=== PATIENT | male | born 1955 | race Hispanic/Latino ===

== ENCOUNTER 2022-02-15 09:44 | Inpatient (IN) | payer BC, OTHER, SELFPAY ==
--- OUTSIDE RECORDS SUMMARY | 2022-02-15 09:46 | XMS REPORT | Continuity of Care Document ---
:1955 Author Organization [facility] t Address [address] [place] [address] Care Team Providers Name Role Phone System, Pcp Not In Primary Care Physician Unavailable Gloria Villalba Attending Clinician Unavailable Luciano Allen Attending Clinician Unavailable Rosita Sullivan Attending Clinician Unavailable Msaoud ALDRICH, Jo Al Attending Clinician Unavailable DIVINE RANDOLPH Attending Clinician Unavailable Only, Ang Db Test Attending Clinician Unavailable Divine Randolph MD Attending Clinician Payers Payer Name Policy Type Policy Number Effective Date Expiration Date S [facility] [employer] 6 [id number] 2018 Common Spiri t Blue Shield 00:00:00 - [facility] Problems Condition Condition Condition Status Onset Resolution Last Treating Co mments Source Name Details Category Date Date Treatment Clinician Date [id number] White coat Problem Com mon syndrome Spirit with - [facility] diagnosis [facility] [id number] Controlled Problem Co mmon type 2 Spirit diabetes - [facility] mellitus [facility] without long-term current use of insulin [id number] Dietary Problem Commo n surveillan Spirit ce and - [facility] counseling [facility] [id number] Hyperlipid Problem Com mon emia, Spirit unspecifie - CHI d St hyperlipid [facility] [id number] Overweight Problem Co [facility] (BMI Spirit 25.0-29.9) [facility] [id number] Open wound Problem Co [facility] Allergies, Adverse Reactions, Alerts Allergy Allergy Status Severity Reaction(s) Onset Inactive Treating Comm ents Source Name Type Date Date Clinician NO KNOWN Drug Active Univers ALLERGIE Class ity [facility] Social History Social Habit Start Date Stop Date Quantity Comments Source History of Tobacco Use Co [facility] Sex Assigned At Com mon [facility] Exposure to SARS-CoV-2 Yes Un [facility] Smoking Status Start Date Stop Date Source Unknown if ever smoked General acute hospital Former Smoker 2021-11-12 00:00:00 2021-11-12 00:00:00 Common S [facility] nter Medications Ordered Filled Start Stop Current Ordering Indication Dosage Frequency Signature Comments Components Source Medication Medication Date Date Medication? Clinician (SIG) Name Name Metformin Metformin Yes Rosita 1 tablet Common HCl HCl 7-02 Millender with a Spirit 00:00: meal - [facility] 00 [facility] metFORMIN metFORMIN No 1{table BID metFORMIN HCl 500 MG HCl 500 MG t_with_ HCl 500 MG a_meal} Aspir-Low Aspir-Low No 1{table QD Aspir-Low 81 MG 81 MG t} 81 MG amLODIPine amLODIPine No 1{table QD amLODIPine Besylate 10 Besylate 10 t} Besylate MG MG 10 MG glipiZIDE glipiZIDE No 1{table BID glipiZIDE 10 MG 10 MG t} 10 MG Metoprolol Metoprolol No 1{table BID Metoprolol Tartrate 50 Tartrate 50 t_with_ Tartrate MG MG food} 50 MG Lisinopril Lisinopril No 1{table BID Lisinopril 20 mg 20 mg t} 20 mg metFORMIN metFORMIN No 1{table BID metFORMIN HCl 500 MG HCl 500 MG t_with_ HCl 500 MG a_meal} Metoprolol Metoprolol No Metoprolol Tartrate 50 Tartrate 50 Tartrate MG MG 50 MG metFORMIN metFORMIN No metFORMIN HCl 500 MG HCl 500 MG HCl 500 MG Lisinopril Lisinopril No 1{table BID Lisinopril 20 mg 20 mg t} 20 mg glipiZIDE glipiZIDE No glipiZIDE 10 MG 10 MG 10 MG glipiZIDE glipiZIDE No 1{table BID glipiZIDE 10 MG 10 MG t} 10 MG Lisinopril Lisinopril No Lisinopril 20 MG 20 MG 20 MG Metoprolol Metoprolol No 1{table BID Metoprolol Tartrate 50 Tartrate 50 t_with_ Tartrate MG MG food} 50 MG amLODIPine amLODIPine No 1{table QD amLODIPine Besylate 10 Besylate 10 t} Besylate MG MG 10 MG Aspir-Low Aspir-Low No 1{table QD Aspir-Low 81 MG 81 MG t} 81 MG amLODIPine amLODIPine No amLODIPine Besylate 10 Besylate 10 Besylate MG MG 10 MG Metoprolol Metoprolol No Metoprolol Tartrate 50 Tartrate 50 Tartrate MG MG 50 MG amLODIPine amLODIPine No 1{table QD amLODIPine Besylate 10 Besylate 10 t} Besylate MG MG 10 MG metFORMIN metFORMIN No 1{table BID metFORMIN HCl 500 MG HCl 500 MG t_with_ HCl 500 MG a_meal} Metoprolol Metoprolol No 1{table BID Metoprolol Tartrate 50 Tartrate 50 t_with_ Tartrate MG MG food} 50 MG amLODIPine amLODIPine No amLODIPine Besylate 10 Besylate 10 Besylate MG MG 10 MG Aspir-Low Aspir-Low No 1{table QD Aspir-Low 81 MG 81 MG t} 81 MG glipiZIDE glipiZIDE No glipiZIDE 10 MG 10 MG 10 MG Lisinopril Lisinopril No 1{table BID Lisinopril 20 mg 20 mg t} 20 mg Lisinopril Lisinopril No Lisinopril 20 MG 20 MG 20 MG glipiZIDE glipiZIDE No 1{table BID glipiZIDE 10 MG 10 MG t} 10 MG metFORMIN metFORMIN No metFORMIN HCl 500 MG HCl 500 MG HCl 500 MG amLODIPine amLODIPine No 1{table QD amLODIPine Besylate 10 Besylate 10 t} Besylate MG MG 10 MG Lisinopril Lisinopril No Lisinopril 20 MG 20 MG 20 MG Aspir-Low Aspir-Low No 1{table QD Aspir-Low 81 MG 81 MG t} 81 MG Metoprolol Metoprolol No Metoprolol Tartrate 50 Tartrate 50 Tartrate MG MG 50 MG metFORMIN metFORMIN No 1{table BID metFORMIN HCl 500 MG HCl 500 MG t_with_ HCl 500 MG a_meal} metFORMIN metFORMIN No metFORMIN HCl 500 MG HCl 500 MG HCl 500 MG Lisinopril Lisinopril Yes Rosita 1 tablet Common Millender [facility] Aspir-Low Aspir-Low Yes Rosita 1 tablet Common Millender [facility] GlipiZIDE GlipiZIDE Yes Rosita 1 tablet Common Millender [facility] Amlodipine Amlodipine Yes Rosita 1 tablet Common Besylate Besylate [facility] Met[facility] Met[facility]rolol Yes Rosita 1 tablet Common Tartrate Tartrate Millender with food [facility] glipiZIDE glipiZIDE No 1{table BID glipiZIDE 10 MG 10 MG t} 10 MG amLODIPine amLODIPine No amLODIPine Besylate 10 Besylate 10 Besylate MG MG 10 MG Lisinopril Lisinopril No 1{table BID Lisinopril 20 mg 20 mg t} 20 mg Metoprolol Metoprolol No 1{table BID Metoprolol Tartrate 50 Tartrate 50 t_with_ Tartrate MG MG food} 50 MG glipiZIDE glipiZIDE No glipiZIDE 10 MG 10 MG 10 MG metFORMIN metFORMIN No 1{table BID metFORMIN HCl 500 MG HCl 500 MG t_with_ HCl 500 MG a_meal} amLODIPine amLODIPine No 1{table QD amLODIPine Besylate 10 Besylate 10 t} Besylate MG MG 10 MG Metoprolol Metoprolol No 1{table BID Metoprolol Tartrate 50 Tartrate 50 t_with_ Tartrate MG MG food} 50 MG Aspir-Low Aspir-Low No 1{table QD Aspir-Low 81 MG 81 MG t} 81 MG glipiZIDE glipiZIDE No 1{table BID glipiZIDE 10 MG 10 MG t} 10 MG Lisinopril Lisinopril No 1{table BID Lisinopril 20 mg 20 mg t} 20 mg metFORMIN metFORMIN No 1{table BID metFORMIN HCl 500 MG HCl 500 MG t_with_ HCl 500 MG a_meal} amLODIPine amLODIPine No 1{table QD amLODIPine Besylate 10 Besylate 10 t} Besylate MG MG 10 MG Metoprolol Metoprolol No 1{table BID Metoprolol Tartrate 50 Tartrate 50 t_with_ Tartrate MG MG food} 50 MG Aspir-Low Aspir-Low No 1{table QD Aspir-Low 81 MG 81 MG t} 81 MG glipiZIDE glipiZIDE No 1{table BID glipiZIDE 10 MG 10 MG t} 10 MG Lisinopril Lisinopril No 1{table BID Lisinopril 20 mg 20 mg t} 20 mg Vital Signs Vital Name Observation Time Observation Value Comments Source height 2021-11-18 09:20:00 74.00 [in_i] Common S pirit - [facility] enter weight 2021-11-18 09:20:00 214 [lb_av] Common S pirit - [facility] enter bmi 2021-11-18 09:20:00 27.47 kg/m2 Common S pirit - [facility] enter height 2021-03-11 09:20:00 74.00 [in_i] Common S [facility]irit - [facility] enter weight 2021-03-11 09:20:00 208.9 [lb_av] Common Spirit - [facility] enter bmi 2021-03-11 09:20:00 26.82 kg/m2 Common S pirit - [facility] enter Procedures This patient has no known procedures. Encounters Start End Encounter Admission Attending Care Care Encounter Source Date/Time Date/Time Type Type Clinicians Facility Department ID 2021-11-16 [facility] [id number] Common 14:11:01 [facility] 2021-07-15 Out[facility] [id number] Common 09:29:00 [facility] 2021-04-13 Outpatient [facility]al[facility], [facility] [id number] Common 13:28:00 [facility] 2021-03-11 Out[facility] [id number] Common 14:39:02 [facility] 2021-03-11 Outpatient Villalba[facility] [id number] Common 14:12:56 [id number] [facility] 2021-03-11 Outpatient Villalba, Na [facility] [id number] Common 12:50:14 40412 [facility] 2021-03-11 Outpatient Villalba, Na [facility] [id number] Common 12:41:34 [id number] [facility] 2021-03-11 Outpatient Villalba, Na [facility] [id number] Common 12:21:41 [id number] [facility] 2021-03-11 Outpatient [facility] [id number] Common 12:18:05 [id number] [facility] 2021-03-11 Outpatient Alejandro Kin [facility] [id number] Common 12:08:27 [id number] [facility] 2021-03-11 Outpatient Millender, [facility] [id number] Common 11:36:59 Rosita 35953 [facility] 2021-03-11 Outpatient Millender, STL[facility]C [facility] [id number] Common 11:36:29 Rosita 11796 [facility] 2021-11-18 2021-11-18 OL DIG E/M [facility] [id number] Common 00:00:00 00:00:00 [facility] 01-03 Spir it MIN [facility] 2021-07-15 2021-07-15 OL DIG E/M [facility] [id number] Common 00:00:00 00:00:00 [facility] 01-03 Spir it MIN [facility] 2021-03-11 2021-03-11 OL DIG E/M [facility]C [facility] [id number] Common 00:00:00 00:00:00 [facility] 01-03 Spir it MIN [facility] 2021-02-19 2021-02-19 (TEL) STLMLC [facility] [id number] Co mmon 00:00:00 00:00:00 [facility] 2021-01-06 2021-01-06 (TEL) STLMLC [facility] [id number] Co mmon 00:00:00 00:00:00 [facility] 2021-01-04 2021-01-04 (TEL) STLMLC ST[facility] [id number] Co mmon 00:00:00 00:00:00 [facility] 2020-10-21 2020-10-21 Letter MasoudMIR garcia [id number] Univers 00:00:00 00:00:00 (Out) Jo Al TASH [id number] it [facility] [id number] Dustin as [id number] [address] 2020-10-19 2020-10-19 Outpatient R GONZALEZ [facility] [id number] Univers 17:00:00 [facility]:00[facility]00 [facility] 2020-10-19 2020-10-19 Laboratory Only, Ang Db Test [facility] [id number] Univers 16:28:44 16:43:44 [id number] [id number] Dustin as Christian?Blea [id number] [address] Medical Office Building 2020-06-19 2020-06-19 Outpatient [facility]C [facility] [id number] Common 00:00:00 00:00:00 [facility] 2020-05-01 2020-05-01 Outpatient STLMLC STL[facility] [id number] Common 00:00:00 00:00:00 [facility] 2020-03-05 2020-03-05 Outpatient STLMLC STL[facility]C [id number] Common 00:00:00 00:00:00 [facility] 2020-02-29 2020-02-29 Outpatient STLMLC ST[facility] [id number] Common 00:00:00 00:00:00 [facility] 2019-09-26 2019-09-26 [facility] [id number] Common 11:00:00 11:00:[address] [facility] - [facility] 2019-08-21 2019-08-21 [facility] [id number] Common 13:51:00 13:51:[address] [facility] 2019-08-20 2019-08-20 [facility] [id number] Common 10:17:00 10:17:[address] [facility] 2019-08-20 2019-08-20 [facility] [id number] Common 10:00:00 10:00:[address] [facility] 2018-10-04 2018-10-04 [facility] [id number] Common 10:15:00 10:15:00 t Urgent Urgent Care S [facility] Care [facility] 2018-01-25 2018-01-25 [facility] [id number] Common 11:15:00 11:15:[address] [facility] 2017-08-24 2017-08-24 [facility] [id number] Common 13:30:00 13:30:[address] [facility] Results This patient has no known results.
--- NOTE | 2022-02-15 10:48 | RAD REPORT ---
EXAM DESCRIPTION: RAD - Chest Single View - 02/15/2022 10:30 am CLINICAL HISTORY: MALAISE, weakness, chest pain COMPARISON: June 2014 TECHNIQUE: AP portable chest image was obtained 02/15/2022 10:30 am . FINDINGS: Lungs are clear. Heart and vasculature are normal. No measurable pleural effusion and no p neumothorax. No acute bony abnormality seen. No acute aortic findings suspected. IMPRESSION: No acute cardiopulmonary process.
--- NOTE | 2022-02-15 10:50 | RAD REPORT ---
EXAM DESCRIPTION: CT - Head Brain Wo Cont - 02/15/2022 10:24 am CLINICAL HISTORY: fall, gen weakness COMPARISON: Chest Single View dated 02/15/2022 TECHNIQUE: Axial 5 mm thick images of the head were obtained without IV contrast. All CT scans are performed using dose optimization technique as appropriate and may include automated exposure control or mA/KV adjustment according to patient size. FINDINGS: No intracranial hemorrhage, mass, edema or shift of mid-line structures. No acute cortical based infarction identified. No cortical edema or sulcal effacement. No significant atrophy changes are present. No abnormal extra-axial fluid collections. Ventricles are normal. Focal decreased attenu ation is seen in the periventricular white matter right frontal lobe. This is probably chronic ischem ic change. No focal neurologic deficits were detailed. Mastoid air cells and visualized portions of the paranasal sinuses are clear of acute finding. No acute bony findings. IMPRESSION: No intracranial hemorrhage is present. No mass, edema or shift of midline structures. Right frontal lobe periventricular white matter decreased attenuation likely chronic ischemic change. Ongoing clinical concerns for acute CVA can be addressed with MR imaging.
[2022-02-15 11:02] LABS: Absolute Lymphocytes (CBC) 0.5 K/uL (0.7-4.9); Hematocrit 39.7 % (39.6-49.0); Lymphocytes % 5.3 % (15.3-44.8); MCV 95.5 fL (80-100); RBC Red Blood Cell Count 4.15 M/uL (4.33-5.43)
[2022-02-15 11:08] LABS: Protime INR 1.43
[2022-02-15 11:21] LABS: Albumin 3.6 g/dL (3.4-5.0); Bilirubin Total 1.4 mg/dL (0.2-1.0); Potassium 3.1 mmol/L (3.5-5.1); Protein, Total 7.9 g/dL (6.4-8.2)
[2022-02-15 11:36] LABS: Troponin High Sensitivity 61.8 pg/mL (<58.9)
[2022-02-15 12:03] LABS: Urine Blood 3+ (Negative); Urine Glucose 2+ (Negative); Urine Protein 3+ (Negative)
[2022-02-15 12:24] LABS: Transitional Epithelial <5 /HPF (None Seen); Urine Bacteria None Seen /HPF (<20); Urine Mucus Slight /HPF (None Seen); Urine RBC <5 /HPF (None Seen)
[2022-02-15 13:23] LABS: SARS-COV-2 RT PCR NEGATIVE (NEGATIVE)
[2022-02-15] MEDS ORDERED: NA CHLORIDE 0.9% 1,000 ML ONE ×2 (13:23→23:40)
[2022-02-15 13:44] LABS: Magnesium 2.2 mg/dL (1.6-2.4)
--- NOTE | 2022-02-15 14:04 | ER ---
Nurse's Notes [facility] Name: Kelby Paris Jr Age: 66 yrs Sex: Male : 1955 Arrival Date: 02/15/2022 Time: 10:10 Bed 18 Private MD: Diagnosis: Rhabdomyolysis;Hyponatremia;Hypokalemia;Muscle weakness (generalized) Presentation: 02/15 10:20 Chief complaint: EMS states: patient came from home, toned out for general weakness, kr3 fell last night and was unable to get up. Patient was found by family and assisted to his bed this morning and called EMS. Coronavirus screen: Vaccine status: Patient reports receiving the 2nd dose of the covid vaccine. Coronavirus screen: Client denies travel out of the [place] in the last 14 days. Ebola Screen: Patient denies travel to an Ebola-affected area in the 21 days before illness onset. Initial Sepsis Screen: Does the patient meet any 2 criteria? No. Patient's initial sepsis screen is negative. Does the patient have a suspected source of infection? No. Patient's initial sepsis screen is negative. Risk Assessment: Do you want to hurt yourself or someone else? Patient reports no desire to harm self or others. 10:20 Method Of Arrival: Stretcher kr3 10:20 Acuity: JULIA 3 kr3 02/16 04:36 Onset of symptoms was February 14, 2022. as6 Triage Assessment: 02/15 10:52 General: Appears in no apparent distress. comfortable, Behavior is calm, cooperative, kr3 appropriate for age. Pain: Denies pain. Historical: - Allergies: 10:27 No Known Allergies; kr3 - PMHx: 10:27 Diabetes mellitus; Hypertensive disorder; kr3 - Immunization history:: Adult Immunizations not up to date. - Social history:: Smoking status: Patient/guardian denies using tobacco, the patient reports quitting approximately 30 years ago. Screenin:26 [facility] ED Fall Risk Assessment (Adult) History of falling in the last 3 months, kr3 including since admission Yes- single mechanical fall (1 pt) Confusion or Disorientation No (0 pts) Intoxicated or Sedated No (0 pts) Impaired Gait No (0 pts) Mobility Assist Device Used No (0 pt) Altered Elimination No (0 pt) Score/Fall Risk Level 0 - 2 = Low Risk. Abuse screen: Denies threats or abuse. Nutritional screening: No deficits noted. Tuberculosis screening: No symptoms or risk factors identified. Assessment: 12:04 Reassessment: Patient appears in no apparent distress at this time. Patient and/or kr3 family updated on plan of care and expected duration. Pain level reassessed. Patient is alert, oriented x 3, equal unlabored respirations, skin warm/dry/pink. 13:01 Reassessment: Patient appears in no apparent distress at this time. Patient and/or kr3 family updated on plan of care and expected duration. Pain level reassessed. Patient is alert, oriented x 3, equal unlabored respirations, skin warm/dry/pink. 13:55 Reassessment: Patient appears in no apparent distress at this time. Patient and/or kr3 family updated on plan of care and expected duration. Pain level reassessed. Patient is alert, oriented x 3, equal unlabored respirations, skin warm/dry/pink. Vital Signs: 10:36 BP 152 / 78; Pulse 113; Resp 18; Temp 98.6; Pulse Ox 98% on R/A; kr3 12:04 BP 159 / 82; Pulse 111; Resp 18; Pulse Ox 99% on R/A; kr3 13:01 BP 166 / 92; Pulse 110; Resp 18; Pulse Ox 100% ; kr3 13:56 BP 150 / 80; Pulse 113; Resp 18; Pulse Ox 98% on R/A; kr3 19:15 BP 144 / 74; Pulse 115; Resp 18 S; Pulse Ox 97% on R/A; as6 NIH Stroke Scale Scores: 10:00 NIHSS Score: 0 [facility] ED Course: 10:10 Patient arrived in ED. mr 10:10 Daniela Kimbrough FNP [facility] j[facility] 10:10 Ally Montez MD is Attending Physician. 7 10:20 Rhonda Perez, VALDEMAR is Primary Nurse. kr3 10:20 Arm band placed on right wrist. Patient placed in an exam room, on a stretcher. kr3 10:26 CT Head Brain wo Cont In Process Unspecified. EDMS 10:26 Triage completed. kr3 10:32 XRAY Chest (1 view) In Process Unspecified. EDMS 10:57 Troponin High Sensitivity Sent. bc6 10:58 CBC with Diff Sent. bc6 10:58 CMP Sent. bc6 10:58 Lactate w/ 2H reflex if indic. Sent. bc6 10:58 Protime (+inr) Sent. bc6 10:58 Ptt, Activated Sent. bc6 10:58 Initial lab(s) drawn, by me, sent to lab. bc6 12:04 COVID-19/FLU A+B Sent. kr3 14:01 Montrell Mcrae is Hospitalizing Provider. 7 14:32 Inserted saline lock: 22 gauge in left antecubital area, using aseptic technique. Blood kr3 collected. 16:59 No provider procedures requiring assistance completed. Patient admitted, IV remains in kr3 place. 02/16 04:36 Placed in gown. Bed in low position. Call light in reach. Side rails up X2. as6 Administered Medications: 02/15 13:28 Drug: NS 0.9% 1000 ml Route: IV; Rate: 1 bolus; Site: right antecubital; kr3 02/16 04:37 Follow up: Response: No adverse reaction; IV Status: Completed infusion; IV Intake: as6 1000ml 02/15 16:41 Drug: Potassium Chloride 40 mEq Route: PO; kr3 02/16 04:37 Follow up: Response: No adverse reaction as6 02/15 16:41 Drug: vancoMYCIN 1 grams Route: IVPB; Infused Over: 2 hrs; Site: right antecubital; kr3 02/16 04:37 Follow up: Response: No adverse reaction; IV Status: Completed infusion; IV Intake: as6 250ml 02/15 22:46 Drug: Cefepime 1 grams Route: IVPB; Rate: 200 ml/hr; Infused Over: 30 mins; Site: right as6 antecubital; 02/16 04:38 Follow up: Response: No adverse reaction; IV Status: Completed infusion; IV Intake: as6 100ml 02/15 22:47 Not Given (not given by previous shiff): Zofran (Ondansetron) 4 mg IVP once; over 2 as6 minutes 22:48 Not Given (not given by previous shift ): ProTONIX (pantoprazole) 80 mg IVP once as6 Medication: 19:16 VIS not applicable for this client. as6 Intake: 02/16 04:37 IV: 1000ml; Total: 1000ml. as6 04:37 IV: 250ml; Total: 1250ml. as6 04:38 IV: 100ml; Total: 1350ml. as6 Outcome: 02/15 14:02 Decision to Hospitalize by Provider. [facility] 02/16 04:36 Admitted to ER Hold. Please see [facility] for further documentation. as6 Condition: stable Instructed on the need for admit. 08:40 Patient left the ED. ap3 NIH Stroke Scale - NIH Stroke Score Date: 02/15/2022 Time: 10:00 Total Score = 0 1a. Level of Consciousness (LOC) - 0(Alert) 1b. Level of Consciousness (LOC) (Month \T\ Age) - 0(Both) 1c. LOC Commands (Open \T\ Closes Eyes/Vacuum Tester Cans) - 0(Both) 2. Best Gaze (Lateral Gaze Paresis) - 0(Normal) 3. Visual Field Loss - 0(No visual loss) 4. Facial Palsy - 0(Normal) 5a. Left Arm: Motor (10-second hold) - 0(No drift) 5b. Right Arm: Motor (10-second hold) - 0(No drift) 6a. Left Leg: Motor (5-second hold - always test supine) - 0(No drift) 6b. Right Leg: Motor (5-second hold - always test supine) - 0(No drift) 7. Limb Ataxia (finger/nose \T\ heel/booth - test with eyes open) - 0(Absent) 8. Sensory Loss (pinprick arms/legs/face) - 0(Normal) 9. Best Language: Aphasia (description/naming/reading) - 0(No aphasia) 10. Dysarthria (speech clarity - read or repeat words) - 0(Normal) 11. Extinction and Inattention (visual/tactile/auditory/spatial/personal) - 0(No abnormality) Initials: [facility] Signatures: Dispatcher [employer] OCTAVIOCA Mayra Maria Eda Delong, RN RN herber3 Eric Lazo RN RN as6 Daniela Kimbrough, ACTIONSCRIPT DEVELOPER ACTIONSCRIPT DEVELOPER 7 Rhonda Perez RN RN kr3 India Zamudio
--- NOTE | 2022-02-15 14:04 | EDPHYS ---
Physician Documentation [facility] Name: Kelby Paris Jr Age: 66 yrs Sex: Male : 1955 Arrival Date: 02/15/2022 Time: 10:10 Bed 18 Private MD: OCTAVIO Physician Ally Montez HPI: 02/15 10:00 This 66 yrs old Male presents to ER via Stretcher with complaints of jh7 Generalized weakness. 10:00 The patient's problem is reported as weakness, that is generalized. Onset: The jh7 symptoms/episode began/occurred 2 day(s) ago. Duration: The episode is continuous. Associated signs and symptoms: Pertinent positives: Pertinent negatives: abdominal pain, chest pain, confusion, diarrhea, dizziness, headache, nausea, numbness, shortness of breath, vomiting. Patient reports generalized weakness since Tuesday. Reports that he slipped and fell in the restroom last night and was too weak to get up. Family members found patient on the floor after 12 hours this morning and were able to move him to his bed. PCP is Dr. Villalba. The patient is a history of hypertension and diabetes. EMS reports foul-smelling urine, blood glucose of 274, and tachycardic at 120.. Historical: - Allergies: 10:27 No Known Allergies; kr3 - PMHx: 10:27 Diabetes mellitus; Hypertensive disorder; kr3 - Immunization history:: Adult Immunizations not up to date. - Social history:: Smoking status: Patient/guardian denies using tobacco, the patient reports quitting approximately 30 years ago. ROS: 10:00 Constitutional: Negative for fever, chills, and weight loss, Eyes: Negative for injury, jh7 pain, redness, and discharge, ENT: Negative for injury, pain, and discharge, Neck: Negative for injury, pain, and swelling, Cardiovascular: Negative for chest pain, palpitations, and edema, Respiratory: Negative for shortness of breath, cough, wheezing, and pleuritic chest pain, Abdomen/GI: Negative for abdominal pain, nausea, vomiting, diarrhea, and constipation, Back: Negative for injury and pain, MS/Extremity: Negative for injury and deformity, Skin: Negative for injury, rash, and discoloration. 10:00 : Positive for foul smelling urine. 10:00 Neuro: Positive for weakness, Negative for altered mental status, dizziness, headache, loss of consciousness, syncope, tingling, visual changes. 10:00 All other systems are negative. Exam: 10:00 Head/Face: Normocephalic, atraumatic. Eyes: Pupils equal round and reactive to light, jh7 extra-ocular motions intact. Lids and lashes normal. Conjunctiva and sclera are non-icteric and not injected. Cornea within normal limits. Periorbital areas with no swelling, redness, or edema. Neck: Trachea midline, no thyromegaly or masses palpated, and no cervical lymphadenopathy. Supple, full range of motion without nuchal rigidity, or vertebral point tenderness. No Meningismus. Cardiovascular: Regular rate and rhythm with a normal S1 and S2. No gallops, murmurs, or rubs. Normal PMI, no JVD. No pulse deficits. Respiratory: Lungs have equal breath sounds bilaterally, clear to auscultation and percussion. No rales, rhonchi or wheezes noted. No increased work of breathing, no retractions or nasal flaring. Abdomen/GI: Soft, non-tender, with normal bowel sounds. No distension or tympany. No guarding or rebound. No evidence of tenderness throughout. Back: No spinal tenderness. No costovertebral tenderness. Full range of motion. Skin: Warm, dry with normal turgor. Normal color with no rashes, no lesions, and no evidence of cellulitis. MS/ Extremity: Pulses equal, no cyanosis. Neurovascular intact. Full, normal range of motion. 10:00 Constitutional: The patient appears alert, awake, tired appearing 10:00 : CVA tenderness, is absent, Foul-smelling urine noted upon exam. 10:00 Neuro: Orientation: to person, place, time \T\ situation. Mentation: is normal, Memory: is normal, Cranial nerves: grossly normal, Cerebellar function: is grossly normal, Motor: is normal, Sensation: is normal. Vital Signs: 10:36 BP 152 / 78; Pulse 113; Resp 18; Temp 98.6; Pulse Ox 98% on R/A; kr3 12:04 BP 159 / 82; Pulse 111; Resp 18; Pulse Ox 99% on R/A; kr3 13:01 BP 166 / 92; Pulse 110; Resp 18; Pulse Ox 100% ; kr3 13:56 BP 150 / 80; Pulse 113; Resp 18; Pulse Ox 98% on R/A; kr3 19:15 BP 144 / 74; Pulse 115; Resp 18 S; Pulse Ox 97% on R/A; as6 NIH Stroke Scale Scores: 10:00 NIHSS Score: 0 7 MDM: 10:10 Patient medically screened. [facility] 13:00 ED course: Patient reports that he has been unable to abduct his right arm beyond 90 jh7 degrees due to weakness. He denies any pain or injury to his arm, but states that since yesterday he has been having to use his left arm to raise his right arm above his head. Informed Erons, BREAK UP WORKER of this and agreed to order an MRI of the brain. The patient will be admitted for rhabdomyolysis, hypokalemia, and hyponatremia. The patient remained stable throughout the ER visit.. 14:00 Differential diagnosis: CVA, TIA, metabolic disorder, UTI, sepsis, pneumonia, [facility] electrolyte disturbance, rhabdomyolysis. Data reviewed: vital signs, nurses notes, lab test result(s), EKG, radiologic studies, CT scan, plain films. Data interpreted: Pulse oximetry: is 98 %. Interpretation: normal. Counseling: I had a detailed discussion with the patient and/or guardian regarding: the historical points, exam findings, and any diagnostic results supporting the discharge/admit diagnosis, the need for further work-up and treatment in the hospital. 02/15 10:12 Order name: CBC with Diff; Complete Time: 11:18 [facility] 02/15 10:12 Order name: CMP; Complete Time: 11:59 [facility] 02/15 10:12 Order name: Lactate w/ 2H reflex if indic.; Complete Time: 11:59 [facility] 02/15 10:12 Order name: Protime (+inr); Complete Time: 11:18 [facility] 02/15 10:12 Order name: Ptt, Activated; Complete Time: 11:18 [facility] 02/15 10:12 Order name: Urine Culture [facility] 02/15 10:12 Order name: Urine Microscopic Only; Complete Time: 12:26 [facility] 02/15 10:12 Order name: Troponin High Sensitivity; Complete Time: 11:59 [facility] 02/15 10:13 Order name: COVID-19/FLU A+B; Complete Time: 13:23 [facility] 02/15 11:54 Order name: Glucose, Ancillary Testing; Complete Time: 11:59 EDMS 02/15 12:03 Order name: Urine Dipstick-Ancillary; Complete Time: 12:26 EDMS 02/15 12:29 Order name: CK; Complete Time: 13:47 [facility] 02/15 12:29 Order name: Magnesium; Complete Time: 13:47 [facility] 02/15 12:29 Order name: Procalcitonin; Complete Time: 13:47 [facility] 02/15 13:54 Order name: Glucose, Ancillary Testing; Complete Time: 13:55 EDMS 02/15 13:56 Order name: Blood Culture Adult (2) [facility] 02/15 15:36 Order name: Troponin High Sensitivity EDMS 02/15 15:36 Order name: Troponin High Sensitivity; Complete Time: 22:56 EDMS 02/15 15:36 Order name: Troponin High Sensitivity; Complete Time: 06:57 EDMS 02/15 15:40 Order name: Creatine Phosphokinase; Complete Time: 22:56 EDMS 02/15 15:40 Order name: Lipid Profile; Complete Time: 06:57 EDMS 02/15 15:40 Order name: Magnesium; Complete Time: 22:56 EDMS 02/15 15:40 Order name: NT PRO-BNP; Complete Time: 22:56 EDMS 02/15 15:40 Order name: Phosphorus; Complete Time: 22:56 MS 02/15 15:40 Order name: Protime (+INR); Complete Time: 22:56 EDMS 02/15 15:40 Order name: T4 Free; Complete Time: 22:56 MS 02/15 15:40 Order name: Thyroid Stimulating Hormone; Complete Time: 22:56 MS 02/15 15:40 Order name: Urinalysis EDMS 02/15 15:40 Order name: Basic Metabolic Panel EDMS 02/15 15:40 Order name: Basic Metabolic Panel; Complete Time: 06:57 MS 02/15 10:12 Order name: EKG; Complete Time: 10:14 [facility] 02/15 10:12 Order name: CT Head Brain wo Cont; Complete Time: 10:54 [facility] 02/15 10:12 Order name: XRAY Chest (1 view); Complete Time: 10:54 [facility] 02/15 14:12 Order name: MRI - Brain Wo Cont 7 02/15 15:40 Order name: CBC with Automated Diff EDMS 02/15 15:40 Order name: CBC with Automated Diff; Complete Time: 06:57 EDMS 02/15 15:45 Order name: Osmolality, Serum; Complete Time: 22:56 EDMS 02/15 15:45 Order name: Osmolality, Urine EDMS 02/15 15:45 Order name: Sodium Level EDMS 02/15 15:45 Order name: UR POTASSIUM EDMS 02/15 15:45 Order name: UR SODIUM EDMS 02/15 15:47 Order name: Creatine Phosphokinase EDMS 02/15 15:47 Order name: Creatine Phosphokinase; Complete Time: 06:57 EDMS 02/15 15:48 Order name: Basic Metabolic Panel EDMS 02/15 15:48 Order name: Basic Metabolic Panel; Complete Time: 22:56 EDMS 02/15 16:02 Order name: Lactate Sepsis 2 HR Follow-up; Complete Time: 17:42 EDMS 02/15 17:45 Order name: CT Abd/Pelvis - IV Contrast Only [facility] 02/15 18:10 Order name: Type And Screen [facility] 02/15 18:53 Order name: MRI; Complete Time: 19:13 EDMS 02/15 20:07 Order name: CT; Complete Time: 22:56 EDMS 02/15 21:42 Order name: Type and Screen; Complete Time: 22:56 EDMS 02/15 23:38 Order name: Hemoglobin; Complete Time: 06:57 EDMS 02/15 23:38 Order name: Hematocrit; Complete Time: 06:57 EDMS 02/16 01:56 Order name: ABO/RH no charge; Complete Time: 06:57 EDMS 02/16 07:29 Order name: Liver (Hepatic) Function EDMS 02/16 07:44 Order name: Glucose, Ancillary Testing EDWI 02/15 10:12 Order name: Accucheck; Complete Time: 11:42 [facility] 02/15 10:12 Order name: Cardiac monitoring; Complete Time: 11:37 [facility] 02/15 10:12 Order name: EKG - Nurse/Tech; Complete Time: 11:37 [facility] 02/15 10:12 Order name: IV Saline Lock - Large Bore; Complete Time: 10:57 [facility] 02/15 10:12 Order name: Labs collected and sent; Complete Time: 10:57 [facility] 02/15 10:12 Order name: O2 Per Protocol; Complete Time: 11:26 [facility] 02/15 10:12 Order name: O2 Sat Monitoring; Complete Time: 11:26 [facility] 02/15 10:12 Order name: Urine Dipstick-Ancillary (obtain specimen); Complete Time: 12:04 [facility] 02/15 10:12 Order name: Vital Signs; Complete Time: 11:37 [facility] 02/15 13:24 Order name: Blood Glucose Level; Complete Time: 13:44 [facility] 02/15 15:40 Order name: 60g Consistent Carbohydrate (ADA 1800/2000) EDMS 02/15 15:49 Order name: Physical Therapy Consult EDMS EC:30 Rate is 107 beats/min. Rhythm is regular. QRS [place] is Normal. CT interval is normal at [facility] 152 msec. QRS interval is normal at 84 msec. QT interval is normal at 366 msec. No Q waves. T waves are Normal. Clinical impression: Sinus tachycardia. Administered Medications: 13:28 Drug: NS 0.9% 1000 ml Route: IV; Rate: 1 bolus; Site: right antecubital; 3 02/16 04:37 Follow up: Response: No adverse reaction; IV Status: Completed infusion; IV Intake: as6 1000ml 02/15 16:41 Drug: Potassium Chloride 40 mEq Route: PO; 3 02/16 04:37 Follow up: Response: No adverse reaction [facility] 02/15 16:41 Drug: vancoMYCIN 1 grams Route: IVPB; Infused Over: 2 hrs; Site: right antecubital; 3 02/16 04:37 Follow up: Response: No adverse reaction; IV Status: Completed infusion; IV Intake: as6 250ml 02/15 22:46 Drug: Cefepime 1 grams Route: IVPB; Rate: 200 ml/hr; Infused Over: 30 mins; Site: right as6 antecubital; 02/16 04:38 Follow up: Response: No adverse reaction; IV Status: Completed infusion; IV Intake: as6 100ml 02/15 22:47 Not Given (not given by previous shiff): Zofran (Ondansetron) 4 mg IVP once; over 2 as6 minutes 22:48 Not Given (not given by previous shift ): ProTONIX (pantoprazole) 80 mg IVP once as6 Disposition Summary: 02/15/22 14:02 Hospitalization Ordered Hospitalization Status: Inpatient Admission [facility] Provider: Montrell Mcrae Condition: Stable [facility] Problem: new [facility] Symptoms: have worsened [facility] Bed/Room Type: Standard [facility] Location: Telemetry/MedSurg (Inpatient)(02/16/22 07:25) bd Room Assignment: 220(02/16/22 07:25) bd Diagnosis - Rhabdomyolysis [facility] - Hyponatremia [facility] - Hypokalemia [facility] - Muscle weakness (generalized) [facility] Forms: - Medication Reconciliation Form [facility] - SBAR form [facility] NIH Stroke Scale - NIH Stroke Score Date: 02/15/2022 Time: 10:00 Total Score = 0 1a. Level of Consciousness (LOC) - 0(Alert) 1b. Level of Consciousness (LOC) (Month \T\ Age) - 0(Both) 1c. LOC Commands (Open \T\ Closes Eyes/Background Check Coordinator) - 0(Both) 2. Best Gaze (Lateral Gaze Paresis) - 0(Normal) 3. Visual Field Loss - 0(No visual loss) 4. Facial Palsy - 0(Normal) 5a. Left Arm: Motor (10-second hold) - 0(No drift) 5b. Right Arm: Motor (10-second hold) - 0(No drift) 6a. Left Leg: Motor (5-second hold - always test supine) - 0(No drift) 6b. Right Leg: Motor (5-second hold - always test supine) - 0(No drift) 7. Limb Ataxia (finger/nose \T\ heel/booth - test with eyes open) - 0(Absent) 8. Sensory Loss (pinprick arms/legs/face) - 0(Normal) 9. Best Language: Aphasia (description/naming/reading) - 0(No aphasia) 10. Dysarthria (speech clarity - read or repeat words) - 0(Normal) 11. Extinction and Inattention (visual/tactile/auditory/spatial/personal) - 0(No abnormality) Initials: [facility] Addendum: 02/19/2022 02:18 STAFF ATTESTATION STATEMENT: I was immediately available onsite in the [facility] emergency department for consultation in the care of this patient. I did not see or examine this patient. Ally Montez MD. Signatures: Dispatcher [employer] EDHoma Mcdonald Libra Grant, RN RN Ally Duque RN VALDEMAR Julian Butcher PA PA jmm Attema, Lee, FINISH MIXER-C FINISH MIXER-[facility] Eric Lazo RN RN as6 Daniela Kimbrough FNP FINISH MIXER jh7 Ally Montez MD MD sd2 Rhonda Perez RN RN kr3 Corrections: (The following items were deleted from the chart) 02/15 16:39 14:02 [facility] 18:01 16:39 401 [facility] 18:09 14:02 Telemetry/MedSurg (Inpatient) [facility] 18:09 18:01 410 [facility] 19:24 18:09 [facility] 02/16 07:25 01 18:09 [facility] ER HOLD [facility] 02/16 07:25 [facility]
[2022-02-15] MEDS ORDERED: ACETAMINOPHEN 325 MG TABLET PO PRN (15:33)
[2022-02-15] MEDS ORDERED: ONDANSETRON 4 MG/2 ML VIAL IV PRN (15:37)
--- NOTE | 2022-02-15 15:47 | P.HP ---
Certification for Inpatient Patient admitted to: Inpatient With expected LOS: >2 Midnights Patient will require the following post-hospital care: None Practitioner: I am a practitioner with admitting privileges, knowledge of patient current condition, hospital course, and medical plan of care. Services: Services provided to patient in accordance with Admission requirements found in Title 42 Section 412.3 of the Code of Federal Regulations Patient History Date of Service: 02/16/22 Reason for admission: Generalized weakness History of Present Illness: Patient is a 66-year-old male with a past medical history significant for DM 2, hypertension, alcohol abuse who presents with complaint of generalized weakness that has been ongoing for the past 2 days. Patient reported that he fell yesterday and was on the floor for about 12 hours. Patient denies hitting his head or losing consciousness. Patient was found on the floor by family. Patient appeared to have urinated on himself. Patient also reported that he is a daily drinker. While in the ER patient started complaining of left arm weakness as he was unable to lift his arm up. Patient denies any other signs or symptoms. Symptoms are aggravated or relieved by nothing. Family decided to call EMS who brought patient to the hospital for medical evaluation. Of note, Patient observed to have bouts of hematemesis while in the ER after his MRI test Allergies No Known Drug Allergies Allergy (Unverified 06/30/14 23:14) Unknown Home Medications: Glipizide [Glipizide ER] 10 mg PO DAILY 10/26/13 Hydrocodone 7.5/APAP 325 [[place] 7.5/325 mg*] 1 tab PO Q4H PRN #20 tab 10/29/13 Amlodipine [Norvasc] 10 mg PO DAILY 12/15/16 Ciprofloxacin HCl 750 mg PO Q12HR 12/15/16 Clindamycin HCl 300 mg PO DAILY 12/15/16 Metformin ER [Glucophage ER] 500 mg PO BID 12/15/16 Metoprolol Tartrate [Lopressor*] 50 mg PO BID 12/15/16 lisinopriL [Prinivil] 20 mg PO BID 12/15/16 - Past Medical/Surgical History Diabetic: Yes -: NIDDM -: HTN -: 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 -: Left eye - repair retinal detachment -: Amputation right great toe - Social History Smoking Status: Former smoker Alcohol use: Yes CD- Drugs: No Caffeine use: Yes Place of Residence: Home Review of Systems General: Weakness Eyes: Unremarkable ENT: Unremarkable Respiratory: Unremarkable Cardiovascular: Unremarkable Gastrointestinal: Other (Hematemesis ) Genitourinary: Unremarkable Musculoskeletal: Unremarkable Integumentary: Bruising Neurological: Weakness Lymphatics: Unremarkable Physical Examination - Physical Exam General: Alert, In no apparent distress, Oriented x3, Cooperative HEENT: Atraumatic, PERRLA, Mucous membr. moist/pink, EOMI, Sclerae nonicteric Neck: Supple, 2+ carotid pulse no bruit, JVD not distended, No LAD, Without JVD or thyroid abnormality Respiratory: Clear to auscultation bilaterally, Normal air movement Cardiovascular: No edema, Regular rate/rhythm, Normal S1 S2, No murmurs Capillary refill: <2 Seconds Gastrointestinal: Normal bowel sounds, Non-distended, No tenderness Musculoskeletal: No clubbing, No swelling, No tenderness Integumentary: No rashes, No breakdown, No significant lesion, No tenderness/swelling Neurological: Normal speech, Normal tone, Normal affect Lymphatics: No axilla or inguinal lymphadenopathy - Studies Laboratory Data (last 24 hrs) 02/15/22 12:53: Magnesium 2.2 02/15/22 10:51: PT 15.7 H, INR 1.43, APTT 24.7 02/15/22 10:51: Sodium 127 L, Potassium 3.1 L, BUN 16, Creatinine 0.90, Glucose 248 H, Total Bilirubin 1.4 H, AST 264 H, ALT 76 H, Alkaline Phosphatase 68 02/15/22 10:51: WBC 9.30, Hgb 13.9, Hct 39.7, Plt Count 227 Assessment and Plan - Plan --Generalized weakness. MRI brain does not indicate any acute intracranial abnormality. PT eval and treat. -- Rhabdomyolysis. Continue IV hydration. Will reassess CPK in a.m. --Hematemesis. CT abdomen pending. Patient started on Protonix IV. H&H stable. We will continue to monitor hemoglobin. --DM2. BS monitoring with sliding scale insulin. --Alcohol abuse. Patient reports drinking 1 pack of beer daily. Patient reports no withdrawal symptoms with alcohol cessation. [facility] protocol. --Hypokalemia. Replete as needed. -- Hyponatremia. Likely secondary to alcohol abuse. Serum\urine osmolality, serum\urine sodium and urine potassium pending for further evaluation. We will continue to monitor sodium levels. --Hypertension. Poorly controlled. Continue home medications and labetalol as needed. --Elevated troponin. Likely secondary to demand ischemia. Will trend troponin levels. Telemetry to monitor for any significant arrhythmia. -- DVT prophylaxis with SCDs. Discharge Plan: Home Plan to discharge in: Greater than 2 days - Advance Directives Does patient have a Living Will: No Does patient have a Durable POA for Healthcare: No - Code Status/Comfort Care Code Status Assessed: Yes Physician Review: Patient Assessed, Agree with Above Assessment and Plan Critical Care: No
[2022-02-15] MEDS ORDERED: ASPIRIN 81 MG CHEWABLE TABLET PO SCH (16:00)
[2022-02-15] MEDS ORDERED: POTASSIUM CL SA 10 MEQ TAB PO ONE (16:17)
[2022-02-15] MEDS ORDERED: CEFEPIME 1 GM/VIAL ONE (16:17)
[2022-02-15] MEDS ORDERED: VANCOMYCIN 1 GM/VIAL ONE (16:17)
[2022-02-15] MEDS ORDERED: NA CHLORIDE 0.9% 250 ML ONE (16:17)
[2022-02-15] MEDS ORDERED: NA CHLORIDE 0.9% 100 ML IV ONE (16:17)
[2022-02-15] MEDS: INSULIN -REGULAR HUMAN 50 UNIT/0.5 ML ML SQ SCH (16:30)
--- NOTE | 2022-02-15 18:52 | RAD REPORT ---
EXAM DESCRIPTION: MRI - Brain Wo Cont - 02/15/2022 6:34 pm CLINICAL HISTORY: Right arm weakness COMPARISON: Head CT February TECHNIQUE: Axial, sagittal, and coronal magnetic resonance images of the brain were obtained. FINDINGS: Small area of abnormal signal deep and periventricular white matter probably old infarctio n. Diffusion-weighted/ADC mapping does not reveal evidence of acute infarction. The ventricles are normal caliber. An extra-axial fluid collection is not noted. Fluid within the sinuses/mastoids is not seen IMPRESSION: No acute intracranial abnormality noted
--- NOTE | 2022-02-15 20:07 | RAD REPORT ---
EXAM DESCRIPTION: CT - Abdomen Pelvis W Contrast - 02/15/2022 7:54 pm CLINICAL HISTORY: Abdominal pain COMPARISON: none. TECHNIQUE: Computed axial tomography of the abdomen pelvis was obtained. 100 cc Isovue-300 was admin istered intravenously. Oral contrast was not requested which limits evaluation of bowel and appendix All CT scans are performed using dose optimization technique as appropriate and may include automated exposure control or mA/KV adjustment according to patient size. FINDINGS: The wall of the distal esophagus appears thickened. Stomach is distended. The liver, spleen, pancreas, adrenal and kidneys appear unremarkable. There is no evidence of diverticulitis. The bladder is distended IMPRESSION: Mild gastric distention Apparent thickening of the wall of the distal esophagus may be secondary to pathology such as inflamm ation or incomplete distention
[2022-02-15 21:08] LABS: Protime INR 1.41
[2022-02-15 21:26] LABS: Magnesium 2.1 mg/dL (1.6-2.4); Phosphorus 2.7 mg/dL (2.5-4.9); Potassium 3.2 mmol/L (3.5-5.1); Thyroid Stimulating Hormone 1.47 uIU/mL (0.358-3.740); Troponin High Sensitivity 51.8 pg/mL (<58.9)
[2022-02-15] MEDS ORDERED: SODIUM CHLORIDE 0.9% 10ML INJ IV PRN (22:58)
[2022-02-15] MEDS: PANTOPRAZOLE 40 MG INJ IVP SCH (22:59)
[2022-02-15 23:28] LABS: Hematocrit 36.2 % (39.6-49.0)
[2022-02-15] MEDS ORDERED: PANTOPRAZOLE 40 MG INJ ONE (23:40)
[2022-02-16] MEDS: NA CHLORIDE 0.9% 1,000 ML IV SCH ×4 (02:00→22:00)
[2022-02-16 03:01] LABS: Absolute Lymphocytes (CBC) 0.6 K/uL (0.7-4.9); Hematocrit 35.8 % (39.6-49.0); Lymphocytes % 6.9 % (15.3-44.8); MCV 96.5 fL (80-100); MPV 8.6 fL (7.6-11.3); RBC Red Blood Cell Count 3.71 M/uL (4.33-5.43)
[2022-02-16 03:51] LABS: Potassium 3.7 mmol/L (3.5-5.1)
[2022-02-16 05:20] VITALS: BMI 27.2
[2022-02-16 07:21] LABS: Bilirubin Direct 0.4 mg/dL (0-0.2); Protein, Total 6.5 g/dL (6.4-8.2)
[2022-02-16] MEDS: INSULIN -REGULAR HUMAN 50 UNIT/0.5 ML ML SQ SCH ×4 (07:30→21:09)
--- NOTE | 2022-02-16 08:33 | EKG ---
Test Date: 2022-02-15 Test Time: 11:30:21 Printing Sign Machine Operator: MERT MEASUREMENT RESULTS: Intervals: Rate: 107 WA: 152 QRSD: 84 QT: 366 QTc: 488 [place]: P: 66 WA: 152 QRS: -1 T: 38 INTERPRETIVE STATEMENTS: Sinus tachycardia Possible Left atrial enlargement Inferior infarct, age undetermined Abnormal ECG Compared to ECG 06/30/2014 17:48:29 Myocardial infarct finding now present Electronically Signed On 02-16-22 08:31:15 FILING AND POLISHING SUPERVISOR by Niels Pepe
[2022-02-16] MEDS ORDERED: ENOXAPARIN 40 MG/0.4 ML SQ SCH (09:00)
[2022-02-16 11:46] LABS: Specific Gravity 1.029 (1.005-1.030); Urine Bacteria None Seen /HPF (<20); Urine Bilirubin NEGATIVE (Negative); Urine Blood 3+ (Negative); Urine Clarity Clear (Clear); Urine Color Yellow (Yellow); Urine Glucose 4+ (Over) (Negative); Urine Protein 1+ (Negative); Urine RBC <5 /HPF (None Seen); Urine Urobilinogen 1+ (Normal)
[2022-02-16 12:24] LABS: Hematocrit 34.9 % (39.6-49.0)
[2022-02-16] MEDS: PANTOPRAZOLE 40 MG INJ IVP SCH ×2 (14:23→21:08)
--- NOTE | 2022-02-16 21:48 | P.PN ---
Date of Service: 02/16/22 Subjective: dark emesis x 2 overnight feeling better ROS: A complete review of systems was performed and is negative except as mentioned above Physical Exam: Gen: NAD, AOx3 HEENT: normal conjunctiva, sclera anicteric CV: regular rate & rhythm, no edema Pulm: non-labored respirations, clear bilaterally Abd: soft, non-tender, non-distended Skin: no rashes, no lesions Neuro: normal speech, normal affect, moves all extremities vitals reviewed Problem List Generalized weakness Rhabdomyolysis Hematemesis Hyponatremia NIDDM2 h/o EtOH dependence Hypokalemia Hyponatremia HTN L foot ulcer MRI Brain negative unclear etiology of fall / weakness pt reports suddenly becoming weak, denies LOC rhabdo, trend CPK; continue IVF Hematemesis 2 episodes of dark brown emesis CT: inflammatory changes of Patient reports drinking 1 pack of beer daily. Patient reports no withdrawal symptoms with alcohol cessation. CIWA protocol. replete electrolytes Code: full Dispo: home, ~2 days Time Spent Managing Pts Care (In Minutes): 35
[2022-02-17] MEDS: NA CHLORIDE 0.9% 1,000 ML IV SCH ×2 (02:36→14:58)
[2022-02-17 06:24] LABS: Hematocrit 31.3 % (39.6-49.0); Lymphocytes % 13.1 % (15.3-44.8); MCV 97.4 fL (80-100); MPV 7.8 fL (7.6-11.3); RBC Red Blood Cell Count 3.22 M/uL (4.33-5.43)
[2022-02-17 06:54] LABS: Albumin 2.6 g/dL (3.4-5.0); Bilirubin Total 1.1 mg/dL (0.2-1.0); Potassium 3.4 mmol/L (3.5-5.1)
--- NOTE | 2022-02-17 07:14 | P.PN ---
Date of Service: 02/17/22 Subjective: feeling better loose stool last night urinating ok vitals stable; afebrile ROS: A complete review of systems was performed and is negative except as mentioned above Physical Exam: Gen: NAD, AOx3 HEENT: normal conjunctiva, sclera anicteric CV: regular rate & rhythm, no edema Pulm: non-labored respirations, clear bilaterally Abd: soft, non-tender, non-distended Skin: L foot: 1.5cm ulceration on lateral plantar aspect, slight drainage Neuro: normal speech, normal affect, moves all extremities vitals reviewed Problem List L foot ulcer, osteomyelitis Generalized weakness Rhabdomyolysis Hematemesis Hyponatremia NIDDM2 h/o EtOH dependence Hypokalemia Hyponatremia HTN MRI Brain negative unclear etiology of fall / weakness pt reports suddenly becoming weak, denies LOC GPC in both blood cultures - staph coag+ check echo - r/o endocarditis possibly from infection - foot ulcer Dr. Baig consulted ID consulted CPK improving with IVF, renal function stable Hematemesis 2 episodes of dark brown emesis CT: inflammatory changes of distal esophagus, pt denies pain / no tenderness Patient reports drinking 1 pack of beer daily. Patient reports no withdrawal symptoms with alcohol cessation. CIWA protocol. replete electrolytes Code: full Dispo: home, ~2-3 days Time Spent Managing Pts Care (In Minutes): 35
[2022-02-17] MEDS: INSULIN -REGULAR HUMAN 50 UNIT/0.5 ML ML SQ SCH ×5 (07:30→22:11)
[2022-02-17] MEDS ORDERED: POTASSIUM CL SA 10 MEQ TAB PO ONE (07:45)
[2022-02-17] MEDS: VANCOMYCIN 1.75 GM in NA CHLORIDE 0.9% 500 ML IVPB SCH ×2 (08:30→22:08)
[2022-02-17] MEDS: PANTOPRAZOLE 40 MG INJ IVP SCH ×2 (08:31→22:09)
[2022-02-17] MEDS ORDERED: VANCOMYCIN 1.75 GM in NA CHLORIDE 0.9% 500 ML IVPB SCH (09:00)
[2022-02-17] MEDS ORDERED: MEDIHONEY 44 ML TOPICAL TUBE TOP SCH (09:00)
--- NOTE | 2022-02-17 09:30 | P.CNS ---
Chief Complaint: Generalized weakness History of Present Illness: Patient is a 66-year-old male with a past medical history significant for DM 2, hypertension, alcohol abuse who presents with complaint of generalized weakness that has been ongoing for the past 2 days. Patient reported that he fell yesterday and was on the floor for about 12 hours. Patient denies hitting his head or losing consciousness. Patient was found on the floor by family. ID team was consulted due to patient has left diabetic foot ulcer. 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 -: Left eye - repair retinal detachment -: Amputation right great toe - Social History Alcohol use: Yes CD- Drugs: No Caffeine use: Yes Place of Residence: Home Review of Systems 10-point ROS is otherwise unremarkable General: As per HPI Physical Examination Temp Pulse Resp BP Pulse Ox 98.3 F 77 16 138/65 92 02/17/22 08:00 02/17/22 08:00 02/17/22 08:00 02/17/22 08:00 02/17/22 08:00 General: In no apparent distress, Oriented x3 HEENT: Atraumatic, Normocephalic Respiratory: Clear to auscultation bilaterally Cardiovascular: No edema, Normal S1 S2 Gastrointestinal: Normal bowel sounds Musculoskeletal: Other (Left diabetic ulcer; amputation of left great, 4th and 5th toes) Integumentary: Diabetic ulcer (left food) Urinary: Other (Urine color adrienne and clear) - Problems (1) Diabetic foot infection Current Visit: No Status: Acute Plan: 02/16 Wound culture: Pending 02/15 UC: Mixed chase 02/15 BC: Staph-Coagulase Positive; GPC in clusters WBC: 7.5; HGB: 10.8; PLT: 209 Currently on Vancomycin, started 02/17, Day 1 Please apply medihoney and alginate cover by dry dressing and kerlix on the left foot wound on Tuesday, Tuesday and Tuesday. Elevated the foot when possible. (2) Diabetic ulcer of right foot due to type 2 diabetes mellitus Current Visit: No Status: Acute Plan: 02/16 Wound culture: Pending 02/15 UC: Mixed chase / BC: Staph-Coagulase Positive; GPC in clusters Currently on Vancomycin, started 02/17, Day 1 Please apply medihoney and alginate cover by dry dressing and kerlix on the left foot wound on Tuesday, Tuesday and Tuesday. Elevated the foot when possible. (3) Osteomyelitis Current Visit: No Status: Resolved Plan: 02/16 Wound culture: Pending 02/15 UC: Mixed chase 02/15 BC: Staph-Coagulase Positive; GPC in clusters Currently on Vancomycin, started 02/17, Day 1 (4) Uncontrolled diabetes mellitus Current Visit: No Status: Acute Plan: Per primary team management (5) Hypertension Current Visit: No Status: Acute Plan: Per primary team management (6) PAD (peripheral artery disease) Current Visit: No Status: Acute Plan: Per primary team management (7) Hyponatremia Current Visit: No Status: Resolved Plan: Per primary team management (8) Rhabdomyolysis Current Visit: Yes Status: Acute Plan: CK MB trending down. Continue IV fluid per primary team Conclusions/Impression: Case has been discussed with Ute Purcell Thank you Dr. Keller for consult
[2022-02-17] MEDS: MEDIHONEY 44 ML TOPICAL TUBE TOP SCH (10:47)
[2022-02-17 11:15] LABS: C.diff Antigen/Toxin Ag neg : Tox neg (NEG : NEG)
--- NOTE | 2022-02-17 14:44 | RAD REPORT ---
EXAM DESCRIPTION: US - Lower Extremity Arterial Bilat - 02/17/2022 2:20 pm CLINICAL HISTORY: Leg pain/arterial insufficiency FINDINGS: Right common femoral, superficial femoral and popliteal arteries demonstrate biphasic waveforms The right posterior tibial demonstrates biphasic waveform. Right dorsalis pedis arterial waveform tri phasic The left common femoral, and left superficial femoral artery triphasic waveforms. Left popliteal artery biphasic waveform. The left posterior tibial and dorsalis pedis arteries demonstrate biphasic waveforms Grayscale, color and spectral analysis performed on all vessels IMPRESSION: Mild bilateral lower extremity arterial disease
[2022-02-17] MEDS: HYDROCODONE/APAP 5/325 MG TAB PO PRN (22:13)
[2022-02-18] MEDS: NA CHLORIDE 0.9% 1,000 ML IV SCH ×3 (01:53→18:01)
[2022-02-18 03:15] LABS: Hematocrit 30.4 % (39.6-49.0); Lymphocytes % 14.5 % (15.3-44.8); MCV 97.5 fL (80-100); MPV 8.1 fL (7.6-11.3); RBC Red Blood Cell Count 3.12 M/uL (4.33-5.43)
[2022-02-18 03:41] LABS: Albumin 2.6 g/dL (3.4-5.0); Bilirubin Total 0.9 mg/dL (0.2-1.0); Potassium 3.2 mmol/L (3.5-5.1); Protein, Total 5.8 g/dL (6.4-8.2)
--- NOTE | 2022-02-18 06:52 | P.PN ---
Date of Service: 02/18/22 Subjective: no acute events overnight NPO for OR today with Dr. Baig ROS: A complete review of systems was performed and is negative except as mentioned above Physical Exam: Gen: NAD, AOx3 HEENT: normal conjunctiva, sclera anicteric CV: regular rate & rhythm, no edema Pulm: non-labored respirations, clear bilaterally Abd: soft, non-tender, non-distended Skin: L foot: 1.5cm ulceration on lateral plantar aspect, slight drainage Neuro: normal speech, normal affect, moves all extremities vitals reviewed Problem List L foot ulcer, osteomyelitis Generalized weakness Rhabdomyolysis Hematemesis Hyponatremia NIDDM2 h/o EtOH dependence Hypokalemia Hyponatremia HTN MRI Brain negative unclear etiology of fall / weakness pt reports suddenly becoming weak, denies LOC GPC in both blood cultures - staph coag+ check echo - r/o endocarditis possibly from infection - foot ulcer Dr. Baig consulted ID consulted - PICC + 6weeks IV antibiotics CPK improving with IVF, renal function stable Hematemesis 2 episodes of dark brown emesis CT: inflammatory changes of distal esophagus, pt denies pain / no tenderness Patient reports drinking 1 pack of beer daily. Patient reports no withdrawal symptoms with alcohol cessation. CIWA protocol. replete electrolytes Code: full Dispo: home, ~2-3 days Time Spent Managing Pts Care (In Minutes): 35
[2022-02-18] MEDS: INSULIN -REGULAR HUMAN 50 UNIT/0.5 ML ML SQ SCH ×4 (07:30→20:37)
[2022-02-18] MEDS: PANTOPRAZOLE 40 MG INJ IVP SCH ×2 (08:23→20:41)
[2022-02-18] MEDS: KCL 20 MEQ/100 mL IVPB 20 MEQ/100 ML BAG IV SCH ×2 (08:23→10:03)
[2022-02-18] MEDS: MEDIHONEY 44 ML TOPICAL TUBE TOP SCH (09:00)
[2022-02-18] MEDS: VANCOMYCIN 1.75 GM in NA CHLORIDE 0.9% 500 ML IVPB SCH ×2 (10:03→20:37)
[2022-02-18] MEDS ORDERED: NA CHLORIDE 0.9% 1,000 ML ONE (11:29)
[2022-02-18] MEDS ORDERED: MIDAZOLAM HCL 2 MG/2 ML INJ ONE (11:32)
[2022-02-18] MEDS ORDERED: FENTANYL CITR 100 MCG/2 ML ONE (11:32)
[2022-02-18] MEDS ORDERED: propofoL 200 MG/20 ML VIAL IV ONE ×2 (11:32→12:36)
[2022-02-18] MEDS ORDERED: LIDOCAINE 2% MPF 5 ML VIAL ONE (11:35)
[2022-02-18] MEDS: BUPIVACAINE 0.25% PF 30 ML VIAL ONE ×2 (12:21→12:55)
--- NOTE | 2022-02-18 13:04 | P.OP ---
Preoperative diagnosis: LEFT 5th Metatarsal Plantar Wound Postoperative diagnosis: LEFT 5th Metatarsal Plantar Wound Primary procedure: Debridment of Diabetic LEFT 5th Metatarsal Plantar Wound Anesthesia: MAC + Local Estimated blood loss: <2cc Specimen: Debridement Tissue Findings: ~2cm Diabetic ulcer up to Bone, Complications: None Transferred to: Recovery Room Condition: Good
--- NOTE | 2022-02-18 16:14 | PN ---
Subjective: Patient is lying in bed. No new acute event. Denies any headache, nausea, vomiting, ch est pain, abdominal pain, constipation, or diarrhea. Objective: Vital signs: Reviewed. Lungs: Clear to auscultation. Heart: S1, S2. Regular. Abdomen: Soft, nontender. Bowel sounds present. Extremity: Leg ulcer noted. Laboratory Data: WBC 7, hemoglobin 10.7, platelets are 196. Blood cultures are growing MSSA. We wi ll recommend to switch vancomycin to nafcillin or cefazolin. Assessment And Plan: Diabetic foot ulcer with osteomyelitis. cefazolin. Anemia of chron ic disease, rhabdomyolysis, moderate protein-calorie malnourishment, diabetes mellitus. We will foll ow patient as needed. NF/MODL Voice ID: [id number] Report ID: [id number]
--- NOTE | 2022-02-18 17:35 | OP ---
Date of Procedure: 02/18/2022 Surgeon: Eric Baig MD, Preoperative Diagnosis: Left fifth metatarsal plantar foot wound. Postoperative Diagnosis: Left fifth metatarsal plantar foot wound. Procedure Performed: Debridement of diabetic left fifth metatarsal plantar wound. Anesthesia: MAC plus local with 0.25% Marcaine. Estimated Blood Loss: Less than 2 cc. Specimen: Debrided tissue. Findings: Approximately 2 cm diabetic foot ulcer along the fifth metatarsal, plantar aspect extendin g all the way up to and abutting the metatarsal bone. Complications: None. Disposition: The patient was transferred to the recovery room in good condition. Procedure In Detail: After informed consent was obtained, the patient was brought to the operating r oom, prepped in the usual fashion after adequate anesthesia was achieved. I made a circular incision around an open diabetic foot wound on the plantar aspect of fifth metatarsal using a 15 blade down t o subcutaneous tissues and debrided all necrotic tissue using a combination of sharp dissection prima rily and electrocautery. I palpated the area and found to abut the metatarsal bones along the fifth and slightly heading toward the fourth metatarsal. I cleansed this area thoroughly. There was no ob vious bony involvement visually. There was no abscess or fluid collections in the area around the hany frankie. All tissue that was nonviable was removed. The area was then cleansed multiple times using chepe ine. Hemostasis was achieved with electrocautery. The wound was then packed with Vashe-soaked gauze and sterile dressing placed over top. The patient tolerated the procedure well without evidence of complication and transferred to PACU in good condition. All counts were correct at the end of the ca se. TK/MODL Voice ID: [id number] Report ID: [id number]
[2022-02-18] MEDS: HYDROCODONE/APAP 5/325 MG TAB PO PRN (20:38)
[2022-02-18] MEDS: METOPROLOL TAR 50 MG TAB PO SCH (23:51)
[2022-02-19 06:06] LABS: Albumin 2.3 g/dL (3.4-5.0); Bilirubin Total 0.8 mg/dL (0.2-1.0); Potassium 3.2 mmol/L (3.5-5.1); Protein, Total 5.4 g/dL (6.4-8.2)
[2022-02-19] MEDS ORDERED: POTASSIUM CL SA 10 MEQ TAB PO ONE (06:48)
--- NOTE | 2022-02-19 06:57 | ECHO ---
HEIGHT: 5 ft 10 in WEIGHT: 190 lb 0 oz DATE OF STUDY: 02/18/[address]: Krishna Keller MD 2-DIMENSIONAL: YES M.MODE: YES DOPPLER: YES COLOR FLOW: YES TDS: PORTABLE: YES DEFINITY: BUBBLE STUDY: DIAGNOSIS: RULE OUT ENDOCARDITIS CARDIAC HISTORY: CATHERIZATION: SURGERY: PROSTHETIC VALVE: PACEMAKER: MEASUREMENTS (cm) DIASTOLIC (NORMALS) SYSTOLIC (NORMALS) IVSd 1.0 (0.6-1.2) LA Diam 3.4 (1.9-4.0) LVEF 64% LVIDd 4.7 (3.5-5.7) LVIDs 3.1 (2.0-3.5) %FS 34% LVPWd 1.3 (0.6-1.2) Ao Diam 3.2 (2.0-3.7) 2 DIMENSIONAL ASSESSMENT: RIGHT ATRIUM: NORMAL LEFT ATRIUM: NORMAL RIGHT VENTRICLE: NORMAL LEFT VENTRICLE: NORMAL TRICUSPID VALVE: TRACE TRICUSPID REGURGITATION MITRAL VALVE: NORMAL PULMONIC VALVE: NORMAL AORTIC VALVE: NORMAL PERICARDIAL EFFUSION: NONE AORTIC ROOT: NORMAL LEFT VENTRICULAR WALL MOTION: NORMAL DOPPLER/COLOR FLOW: TRACE TRICUSPID REGURGITATION COMMENTS: 1. NORMAL LEFT VENTRICULAR EJECTION FRACTION 55-60% WITH NORMAL WALL MOTION 2. MILD TRICUSPID REGURGITATION 3. NO CLEAR VEGETATION IS SEEN ON THIS EXAM TECHNOLOGIST: SHIVANI RAND
--- NOTE | 2022-02-19 07:18 | P.PN ---
Date of Service: 01/06/23 Subjective: no acute events feeling better betteernibettelingbbetterfebetteeeeeeeeeeeeeeeeeeeeeeeeeeeeeeeeeeee eeeeeeeeeeeeeeeeeeeewwwwwwwwwwwwwwwwwwwwwwwwwwwwwwwwwwwwwwwwwwwwwwwwwwwwwwwwweee eeeeeeeeeeeeeeeeeeeeeeeeeeeeeeeeeeeeeeeeeeeeeeeeeeeeeeeeeeeeeeeeeeeeeeeeeeeeeeee eeeeeeeeeeeeeeeeeeeeeeeeeeeeeeeeeeeeeeee eeeeeeeeeeeeeeeeeeeeeeeeeeeeeeeeeeeeeeeeeeeeeeeeeeeeeeeeeeeeeeeeeeeeeeeeeeeeeeee eeeeeeeeeeeeeeeeeeeeeeeeeeeeeeeeeeeeeeeeeeeeeeeeeeeeeeeeeeeeeeeeeeeeeeeeeeeeeeee eeeeeeeeeeeeeeeeeeeeeeeeeeeeeeeeeeeeeeee eeeeeeeeeeeeeeeeeeeeeeeeeeeeeeeeeeeeeeeeeeeeeeeeeeeeeeeeeeeeeeeeeeeeeeeeeeeeeeee eeeeeeeeeeeeeeeeeeeeeeeeeeeeeeeeeeeeeeeeeeeeeeeeeeeeeeeeeeeeeeeeeeeeeeeeeeeeeeee eeeeeeeeeeeeeeeeeeeeeeeeeeeeeeeeeeeeeeee eeeeeeeeeeeeeeeeeeeeeeeeeeeeeeeeeeeeeeeeeeeeeeeeeeeeeeeeeeeeeeeeeeeeeeeeeeeeeeee eeeeeeeeeeeeeeeeeeeeeeeeeeeeeeeeeeeeeeeeeeeeeeeeeeeeeeeeeeeeeeeeeeeeeeeeeeeeeeee eeeeeeeeeeeeeeeeeeeeeeeeeeeeeeeeeeeeeeee eeeeeeeeeeeeeeeeeeeeeeeeeeeeeeeeeeeeeeeeeeeeeeeeeeeeeeeeeeeeeeeeeeeeeeeeeeeeeeee eeeeeeeeeeeeeeeeeeeeeeeeeeeeeeeeeeeeeeeeeeeeeeeeeeeeeeeeeeeeeeeeeeeeeeeeeeeeeeee eeeeeeeeeeeeeeeeeeeeeeeeeeeeeeeeeeeeeeee eeeeeeeeeeeeeeeeeeeeeeeeeeeeeeeeeeeeeeeeeeeeeeeeeeeeeeeeeeeeeeeeeeeeeeeeeeeeeeee eeeeeeeeeeeeeeeeeeeeeeeeeeeeeeeeeeeeeeeeeeeeeeeeeeeeeeeeeeeeeeeeeeeeeeeeeeeeeeee eeeeeeeeeeeeeeeeeeeeeeeeeeeeeeeeeeeeeeee eeeeeeeeeeeeeeeeeeeeeeeeeeeeeeeeeeeeeeeeeeeeeeeeeeeeeeeeeeeeeeeeeeeeeeeeeeeeeeee eeeeeeeeeeeeeeeeeeeeeeeeeeeeeeeeeeeeeeeeeeeeeeeeeeeeeeeeeeeeeeeeeeeeeeeeeeeeeeee eeeeeeeeeeeeeeeeeeeeeeeeeeeeeeeeeeeeeeee eeeeeeeeeeeeeeeeeeeeeeeeeeeeeeeeeeeeeeeeeeeeeeeeeeeeeeeeeeeeeeeeeeeeeeeeeeeeeeee eeeeeeeeeeeeeeeeeeeeeeeeeeeeeeeeeeeeeeeeeeeeeeeeeeeeeeeeeeeeeeeeeeeeeeeeeeeeeeee eeeeeeeeeeeeeeeeeeeeeeeeeeeeeeeeeeeeeeee eeeeeeeeeeeeeeeeeeeeeeeeeeeeeeeeeeeeeeeeeeeeeeeeeeeeeeeeeeeeeeeeeeeeeeeeeeeeeeee eeeeeeeeeeeeeeeeeeeeeeeeeeeeeeeeeeeeeeeeeeeeeeeeeeeeeeeeeeeeeeeeeeeeeeeeeeeeeeee eeeeeeeeeeeeeeeeeeeeeeeeeeeeeeeeeeeeeeee eeeeeeeeeeeeeeeeeeeeeeeeeeeeeeeeeeeeeeeeeeeeeeeeeeeeeeeeeeeeeeeeeeeeeeeeeeeeeeee eeeeeeeeeeeeeeeeeeeeeeeeeeeeeeeeeeeeeeeeeeeeeeeeeeeeeeeeeeeeeeeeeeeeeeeeeeeeeeee eeeeeeeeeeeeeeeeeeeeeeeeeeeeeeeeeeeeeeee eeeeeeeeeeeeeeeeeeeeeeeeeeeeeeeeeeeeeeeeeeeeeeeeeeeeeeeeeeeeeeeeeeeeeeeeeeeeeeee eeeeeeeeeeeeeeeeeeeeeeeeeeeeeeeeeeeeeeeeeeeeeeeeeeeeeeeeeeeeeeeeeeeeeeeeeeeeeeee eeeeeeeeeeeeeeeeeeeeeeeeeeeeeeeeeeeeeeee eeeeeeeeeeeeeeeeeeeeeeeeeeeeeeeeeeeeeeeeeeeeeeeeeeeeeeeeeeeeeeeeeeeeeeeeeeeeeeee eeeeeeeeeeeeeeeeeeeeeeeeeeeeeeeeeeeeeeeeeeeeeeeeeeeeeeeeeeeeeeeeeeeeeeeeeeeeeeee eeeeeeeeeeeeeeeeeeeeeeeeeeeeeeeeeeeeeeee eeeeeeeeeeeeeeeeeeeeeeeeeeeeeeeeeeeeeeeeeeeeeeeeeeeeeeeeeeeeeeeeeeeeeeeeeeeeeeee eeeeeeeeeeeeeeeeeeeeeeeeeeeeeeeeeeeeeeeeeeeeeeeeeeeeeeeeeeeeeeeeeeeeeeeeeeeeeeee eeeeeeeeeeeeeeeeeeeeeeeeeeeeeeeeeeeeeeee eeeeeeeeeeeeeeeeeeeeeeeeeeeeeeeeeeeeeeeeeeeeeeeeeeeeeeeeeeeeeeeeeeeeeeeeeeeeeeee eeeeeeeeeeeeeeeeeeeeeeeeeeeeeeeeeeeeeeeeeeeeeeeeeeeeeeeeeeeeeeeeeeeeeeeeeeeeeeee eeeeeeeeeeeeeeeeeeeeeeeeeeeeeeeeeeeeeeee eeeeeeeeeeeeeeeeeeeeeeeeeeeeeeeeeeeeeeeeeeeeeeeeeeeeeeeeeeeeeeeeeeeeeeeeeeeeeeee eeeeeeeeeeeeeeeeeeeeeeeeeeeeeeeeeeeeeeeeeeeeeeeeeeeeeeeeeeeeeeeeeeeeeeeeeeeeeeee eeeeeeeeeeeeeeeeeeeeeeeeeeeeeeeeeeeeeeee eeeeeeeeeeeeeeeeeeeeeeeeeeeeeeeeeeeeeeeeeeeeeeeeeeeeeeeeeeeeeeeeeeeeeeeeeeeeeeee eeeeeeeeeeeeeeeeeeeeeeeeeeeeeeeeeeeeeeeeeeeeeeeeeeeeeeeeeeeeeeeeeeeeeeeeeeeeeeee eeeeeeeeeeeeeeeeeeeeeeeeeeeeeeeeeeeeeeee eeeeeeeeeeeeeeeeeeeeeeeeeeeeeeeeeeeeeeeeeeeeeeeeeeeeeeeeeeeeeeeeeeeeeeeeeeeeeeee eeeeeeeeeeeeeeeeeeeeeeeeeeeeeeeeeeeeeeeeeeeeeeeeeeeeeeeeeeeeeeeeeeeeeeeeeeeeeeee eeeeeeeeeeeeeeeeeeeeeeeeeeeeeeeeeeeeeeee eeeeeeeeeeeeeeeeeeeeeeeeeeeeeeeeeeeeeeeeeeeeeeeeeeeeeeeeeeeeeeeeeeeeeeeeeeeeeeee eeeeeeeeeeeeeeeeeeeeeeeeeeeeeeeeeeeeeeeeeeeeeeeeeeeeeeeeeeeeeeeeeeeeeeeeeeeeeeee eeeeeeeeeeeeeeeeeeeeeeeeeeeeeeeeeeeeeeee eeeeeeeeeeeeeeeeeeeeeeeeeeeeeeeeeeeeeeeeeeeeeeeeeeeeeeeeeeeeeeeeeeeeeeeeeeeeeeee eeeeeeeeeeeeeeeeeeeeeeeeeeeeeeeeeeeeeeeeeeeeeeeeeeeeeeeeeeeeeeeeeeeeeeeeeeeeeeee eeeeeeeeeeeeeeeeeeeeeeeeeeeeeeeeeeeeeeee eeeeeeeeeeeeeeeeeeeeeeeeeeeeeeeeeeeeeeeeeeeeeeeeeeeeeeeeeeeeeeeeeeeeeeeeeeeeeeee eeeeeeeeeeeeeeeeeeeeeeeeeeeeeeeeeeeeeeeeeeeeeeeeeeeeeeeeeeeeeeeeeeeeeeeeeeeeeeee eeeeeeeeeeeeeeeeeeeeeeeeeeeeeeeeeeeeeeee eeeeeeeeeeeeeeeeeeeeeeeeeeeeeeeeeeeeeeeeeeeeeeeeeeeeeeeeeeeeeeeeeeeeeeeeeeeeeeee eeeeeeeeeeeeeeeeeeeeeeeeeeeeeeeeeeeeeeeeeeeeeeeeeeeeeeeeeeeeeeeeeeeeeeeeeeeeeeee eeeeeeeeeeeeeeeeeeeeeeeeeeeeeeeeeeeeeeee eeeeeeeeeeeeeeeeeeeeeeeeeeeeeeeeeeeeeeeeeeeeeeeeeeeeeeeeeeeeeeeeeeeeeeeeeeeeeeee eeeeeeeeeeeeeeeeeeeeeeeeeeeeeeeeeeeeeeeeeeeeeeeeeeeeeeeeeeeeeeeeeeeeeeeeeeeeeeee eeeeeeeeeeeeeeeeeeeeeeeeeeeeeeeeeeeeeeee eeeeeeeeeeeeeeeeeeeeeeeeeeeeeeeeeeeeeeeeeeeeeeeeeeeeeeeeeeeeeeeeeeeeeeeeeeeeeeee eeeeeeeeeeeeeeeeeeeeeeeeeeeeeeeeeeeeeeeeeeeeeeeeeeeeeeeeeeeeeeeeeeeeeeeeeeeeeeee eeeeeeeeeeeeeeeeeeeeeeeeeeeeeeeeeeeeeeee eeeeeeeeeeeeeeeeeeeeeeeeeeeeeeeeeeeeeeeeeeeeeeeeeeeeeeeeeeeeeeeeeeeeeeeeeeeeeeee eeeeeeeeeeeeeeeeeeeeeeeeeeeeeeeeeeeeeeeeeeeeeeeeeeeeeeeeeeeeeeeeeeeeeeeeeeeeeeee eeeeeeeeeeeeeeeeeeeeeeeeeeeeeeeeeeeeeeee eeeeeeeeeeeeeeeeeeeeeeeeeeeeeeeeeeeeeeeeeeeeeeeeeeeeeeeeeeeeeeeeeeeeeeeeeeeeeeee eeeeeeeeeeeeeeeeeeeeeeeeeeeeeeeeeeeeeeeeeeeeeeeeeeeeeeeeeeeeeeeeeeeeeeeeeeeeeeee eeeeeeeeeeeeeeeeeeeeeeeeeeeeeeeeeeeeeeee eeeeeeeeeeeeeeeeeeeeeeeeeeeeeeeeeeeeeeeeeeeeeeeeeeeeeeeeeeeeeeeeeeeeeeeeeeeeeeee eeeeeeeeeeeeeeeeeeeeeeeeeeeeeeeeeeeeeeeeeeeeeeeeeeeeeeeeeeeeeeeeeeeeeeeeeeeeeeee eeeeeeeeeeeeeeeeeeeeeeeeeeeeeeeeeeeeeeee eeeeeeeeeeeeeeeeeeeeeeeeeeeeeeeeeeeeeeeeeeeeeeeeeeeeeeeeeeeeeeeeeeeeeeeeeeeeeeee eeeeeeeeeeeeeeeeeeeeeeeeeeeeeeeeeeeeeeeeeeeeeeeeeeeeeeeeeeeeeeeeeeeeeeeeeeeeeeee eeeeeeeeeeeeeeeeeeeeeeeeeeeeeeeeeeeeeeee eeeeeeeeeeeeeeeeeeeeeeeeeeeeeeeeeeeeeeeeeeeeeeeeeeeeeeeeeeeeeeeeeeeeeeeeeeeeeeee eeeeeeeeeeeeeeeeeeeeeeeeeeeeeeeeeeeeeeeeeeeeeeeeeeeeeeeeeeeeeeeeeeeeeeeeeeeeeeee eeeeeeeeeeeeeeeeeeeeeeeeeeeeeeeeeeeeeeee eeeeeeeeeeeeeeeeeeeeeeeeeeeeeeeeeeeeeeeeeeeeeeeeeeeeeeeeeeeeeeeeeeeeeeeeeeeeeeee eeeeeeeeeeeeeeeeeeeeeeeeeeeeeeeeeeeeeeeeeeeeeeeeeeeeeeeeeeeeeeeeeeeeeeeeeeeeeeee eeeeeeeeeeeeeeeeeeeeeeeeeeeeeeeeeeeeeeee eeeeeeeeeeeeeeeeeeeeeeeeeeeeeeeeeeeeeeeeeeeeeeeeeeeeeeeeeeeeeeeeeeeeeeeeeeeeeeee eeeeeeeeeeeeeeeeeeeeeeeeeeeeeeeeeeeeeeeeeeeeeeeeeeeeeeeeeeeeeeeeeeeeeeeeeeeeeeee eeeeeeeeeeeeeeeeeeeeeeeeeeeeeeeeeeeeeeee eeeeeeeeeeeeeeeeeeeeeeeeeeeeeeeeeeeeeeeeeeeeeeeeeeeeeeeeeeeeeeeeeeeeeeeeeeeeeeee eeeeeeeeeeeeeeeeeeeeeeeeeeeeeeeeeeeeeeeeeeeeeeeeeeeeeeeeeeeeeeeeeeeeeeeeeeeeeeee eeeeeeeeeeeeeeeeeeeeeeeeeeeeeeeeeeeeeeee eeeeeeeeeeeeeeeeeeeeeeeeeeeeeeeeeeeeeeeeeeeeeeeeeeeeeeeeeeeeeeeeeeeeeeeeeeeeeeee eeeeeeeeeeeeeeeeeeeeeeeeeeeeeeeeeeeeeeeeeeeeeeeeeeeeeeeeeeeeeeeeeeeeeeeeeeeeeeee eeeeeeeeeeeeeeeeeeeeeeeeeeeeeeeeeeeeeeee eeeeeeeeeeeeeeeeeeeeeeeeeeeeeeeeeeeeeeeeeeeeeeeeeeeeeeeeeeeeeeeeeeeeeeeeeeeeeeee eeeeeeeeeeeeeeeeeeeeeeeeeeeeeeeeeeeeeeeeeeeeeeeeeeeeeeeeeeeeeeeeeeeeeeeeeeeeeeee eeeeeeeeeeeeeeeeeeeeeeeeeeeeeeeeeeeeeeee eeeeeeeeewwwwwwwwwwwwwwwwwwwwwwwwwwwwwwwwwwwwwwwwwwwwwwwwwwwwwwwwwwwwwwwwwwwwwww wwwwwwwwwwwwwwwwwwwwwwwwwwwwwwwwwwwwwwwwwwwwwwwwwwwwwwwwwwwweeeeeeeeeeeeeeeeeeee eeeeeeeeeeeeeeeeeeeeeeeeeeeeeeeeeeeeeeee eeeewwwcariww wwwasadwbakariwwwwwwwwwwwdarrynwwwdevinwanastasiaww wwwheidiw verow verow holdenw verow wwwwwwwwwwwwwwwwwwwwwwwwwwwwwwwwwwwwwwwwwwwwwwwwwwwwwwwwwwwwwwwwwwwwwwwwwwwwwwww wwwwwwwwwwwwwwwwwwwwwwwwwwwwwwwwwwwwwwww wwwwwwwwwwwwwwwweeeeeeeeeeeeeeeeeeeeeeeeeeeeeeeeeeeeeeeeeeeeeeeeeeeeeeeeeeeeeeee eeeeeeeeeeeeeeeeeeeeeeeeeeeeeeeeeeeeeeeeeeeeeeeeeeeeeeeeeeeeeeeeeeeeeeeeeeeeeeew wwwwwwwwweeeeeeeeeeeeeeeeeeeeeeeeeeeeeee eeeeeeeeeeeeeeeeeeeeeeeeeeeeeeeeeeeeeeeeeeeeeeeeeeeeeeeeeeeeeeeeeeeeeeeeeeeeeeee eeeeeeeeeeeeeeeeeeeeeeeeeeeeeeeeeeeeeeeeeeeeeeeeeeeeeeeeeeeeeeeeeeeeeeeeeeeeeeee eeeeeeeeeeeeeeeeeeeeeeeeeeeeeeeeeeeeeeee eeeeeeeeeeeeeeeeeeeeeeeeeeeeeeeeeeeeeeeeeeeeeeeeeeeeeeeeeeeeeeeeeeeeeeeeeeeeeeee eeeeeeeeeeeeeeeeeeeeeeeeeeeeeeeeeeeeeeeeeeeeeeeeeeeeeeeeeeeeeeeeeeeeeeeeeeeeeeee eeeeeeeeeeeeeeeeeeeeeeeeeeeeeeeeeeeeeeee eeeeeeeeeeeeeeeeeeeeeeeeeeeeeeeeeeeeeeeeeeeeeeeeeeeeeeeeeeeeeeeeeeeeeeeeeeeeeeee eeeeeeeeeeeeeeeeeeeeeeeeeeeeeeeeeeeeeeeeewwwwwwwwwwwwwwwwwwwwwwwwwwwwwwwwwwwwwww w ROS: A complete review of systems was performed and is negative except as mentioned above Physical Exam: Gen: NAD, AOx3 HEENT: normal conjunctiva, sclera anicteric CV: regular rate & rhythm, no edema Pulm: non-labored respirations, clear bilaterally Skin: L foot: 1.5cm ulceration on lateral plantar aspect, slight drainage Neuro: normal speech, normal affect, moves all extremities MSK: R shoulder - difficult with ABduction, can't go beyond ~45 degrees; bruising at R shoulder vitals reviewed Problem List L foot ulcer, osteomyelitis R shoulder weakness; concern for rotator cuff injury Generalized weakness Rhabdomyolysis Hematemesis Hyponatremia NIDDM2 h/o EtOH dependence Hypokalemia Hyponatremia HTN MRI Brain negative unclear etiology of fall / weakness pt reports suddenly becoming weak, denies LOC GPC in both blood cultures - MSSA check echo - no clear vegetation Dr. Baig consulted ID consulted - PICC + 6weeks antibiotics CPK improving with IVF, renal function stable Hematemesis 2 episodes of dark brown emesis on admission CT: inflammatory changes of distal esophagus, pt denies pain / no tenderness Patient reports drinking 1 pack of beer daily. Patient reports no withdrawal symptoms with alcohol cessation. CIWA protocol. replete electrolytes L foot ulcer, probed to bone; osteomyelitis general surgery consulted; s/p debridement on 02/18 recommended minimum 1 week antibiotics staph bacteremia (MSSA) -start ancef daily dressing changes with Vashe daily damp to dry, wrap and elevate R Shoulder weakness unable to fully ABduct check MRI, suspect rotator cuff injury from fall Code: full Dispo: home, ~2-3 days Time Spent Managing Pts Care (In Minutes): 25
[2022-02-19] MEDS: INSULIN -REGULAR HUMAN 50 UNIT/0.5 ML ML SQ SCH ×4 (07:30→21:59)
[2022-02-19] MEDS: NA CHLORIDE 0.9% 1,000 ML IV SCH ×2 (08:17)
[2022-02-19] MEDS: VANCOMYCIN 1.75 GM in NA CHLORIDE 0.9% 500 ML IVPB SCH (08:17)
[2022-02-19] MEDS: PANTOPRAZOLE 40 MG INJ IVP SCH ×2 (08:18→21:59)
[2022-02-19] MEDS: METOPROLOL TAR 50 MG TAB PO SCH ×2 (08:20→22:02)
--- NOTE | 2022-02-19 11:06 | P.PN ---
Subjective Date of Service: 02/19/22 Chief Complaint: Generalized weakness Subjective: Improving (No acute issues) Physical Examination - Vital Signs Temperature: 97.8 F Blood Pressure: 143/72 Pulse: 98 Respirations: 18 Pulse Ox (%): 96 - Physical Exam General: Alert, In no apparent distress, Cooperative HEENT: Mucous membr. moist/pink Neck: Supple Respiratory: Clear to auscultation bilaterally Integumentary: Other (LEFT foot ulcer is stable, clean and dry, well packed.) - Studies Microbiology Data (last 24 hrs): 02/15/22 15:20 Blood - Blood Aerobic Blood Culture - Final Staph Aureus 02/15/22 15:20 Blood - Blood Blood Culture Gram Stain - Final 02/15/22 15:20 Blood - Blood Anaerobic Blood Culture - Final 02/15/22 15:20 Blood - Blood Gram Stain - Final 02/15/22 11:58 Clean Catch Urine [place] Count - Final >100,000 CFU/ML. 02/15/22 11:58 Clean Catch Urine - Final MIXED DIONI. Assessment And Plan - Current Problems (Diagnosis) (1) Diabetic foot infection Current Visit: No Status: Acute (2) Diabetic ulcer of right foot due to type 2 diabetes mellitus Current Visit: No Status: Acute Plan: - antibiotics - daily dressing changes with Vashe daily damp to dry, wrap and elevate - follow up in my clinic in 1 week after discharge - continue medical management per Dr Keller Physician Review: Patient Assessed, Agree with Above Assessment and Plan
--- NOTE | 2022-02-19 16:11 | CON ---
Date of Consultation: 02/17/2022 Brief History Of Present Illness: Patient is a 66-year-old male who presents to the hospital after a fall. He has a past medical history significant for diabetes type 2, hypertension, alcohol abuse, w ho had generalized weakness going on 2 days prior to his admission on 02/15/2022. He fell and was do wn on the floor for approximately 12 hours. He denies hitting his head or losing consciousness. It just felt that he had an instability. He had loss of urinary continence and was brought to the emerg ency room with the above-stated complaints with evidence of concern for rhabdomyolysis. He ezra carter has ongoing chronic left foot issues with a chronic left plantar wound in the metatarsal region b etween the second and third toes. He has had multiple toe amputations and only maintains the second and third toes at this point on the left foot. The remainder of toes have been amputated and he has had multiple surgeries of this area. I am consulted to see him for his foot wound at this time. Past Medical History: Significant for diabetes; hypertension; amputation of fourth, fifth toes and g reat toe; left eye retinal detachment repair; alcohol abuse. Allergies: NO KNOWN DRUG ALLERGIES. Home Medications: Include glipizide, [place], Norvasc, Cipro, clindamycin, Glucophage, metoprolol, lis inopril. Social History: He admits to a positive tobacco history, but states he quit. He actively uses alcoh ol. Review of Systems: 10-point review of systems other than HPI, he currently denies. Physical Examination: General: He is awake, alert, oriented. Psychiatric: Appropriate, conversive. HEENT: Normocephalic. Sclerae anicteric. Mucous membranes are moist. Oropharynx clear. Neck: Supple. No JVD. Chest: Normal expansion and excursion. Cardiovascular: Regular rate and rhythm. Pulmonary: Clear to auscultation bilaterally. Extremities: Focused examination of left lower extremity shows a plantar wound approximately 2.5 cm in size with necrosis superficially consistent with a diabetic foot wound along the second and third metatarsal area with exposed tendon and skin connections and some slough consistent with possible inf ection. Vital Signs: Blood pressure 143/74, pulse 93, respiratory rate 18, temperature , SpO2 of 9 5% on room air. Laboratory Data: He had a laboratory exam, which revealed white blood cell count 7.5, hemoglobin 10. 8, hematocrit 31.3, platelet count was 209. Sodium 137, potassium 3.4, chloride 104, carbon dioxide 28, BUN 22, creatinine 0.5, glucose is 147. Total bilirubin 1.1, AST 144, ALT 82. Creatine kinase o n admission was 10,562. His troponins were elevated at 61.8 on high sensitivity. He had imaging per formed, which included a head CT on 02/15/2022, officially read as no intracranial hemorrhage is pres ent. No mass, edema, or midline shift. Structures right frontal periventricular white matter decrea sed attenuation likely chronic ischemic changes. Ongoing concern. An MRI can be performed. Brain M RI was performed on 02/15/2022, officially read as no acute intracranial abnormality noted. Abdomen and pelvis CT performed on 02/15 as well, officially read as mild gastric distention, apparent thicke los of the wall of the distal esophagus may be secondary pathology such as inflammation, incomplete distention. He had a Doppler study on 02/17/2022, officially read as mild bilateral lower extremity arterial disease specifically on the left. The left common femoral and left superficial femoral vaibhav ry is triphasic. Left popliteal artery is biphasic. Left posterior tibial and dorsalis pedis artery demonstrated biphasic waveforms. Assessment And Plan: This is a 66-year-old male who comes in after a fall with multiple medical issu es. 1.Continue medical management. 2.We will recommend debridement of the left foot plantar wound all necrotic and/or infected tissue. 3.Continue antibiotic coverage. 4.Continue treatment for his rhabdomyolysis with IV hydration and renal protection. 5.I have explained risks, benefits, and alternatives of the above stated plan. Patient agrees to pr oceed as indicated specifically related to the debridement. I have explained the risks include, but are not limited to bleeding, infection, damage to surrounding tissues, limb loss, need for amputation , need for more surgery, nerve injury, and other unforeseen complications related to the perioperativ e period including anesthesia-related complications. Patient agrees to proceed as indicated. TK/MODL Voice ID: [id number] Report ID: [id number]
--- NOTE | 2022-02-19 16:39 | PN ---
Subjective: Patient is sitting in bed, not in any acute cardiopulmonary distress. Denies any headac he, nausea, vomiting, chest pain, abdominal pain, constipation, or diarrhea. Objective: Vital Signs: Temperature 97, pulse 90, respiration 18, blood pressure 146/72. Lungs: Clear to auscultation. Heart: S1, S2. Regular. Abdomen: Soft, nontender. Bowel sounds present. Extremities: No edema. Laboratory Data: Reviewed. Assessment And Plan: Bacteremia secondary to Staphylococcus aureus and left foot wound infection wit h Staphylococcus aureus. We will recommend to continue vancomycin total of 6 weeks. Moderate protei n-calorie malnourishment, anemia of chronic disease, diabetic neuropathy and diabetic ulcer. We will follow the patient as needed. NF/MODL Voice ID: [id number] Report ID: [id number]
[2022-02-19] MEDS: CEFAZOLIN SODIUM 2 GM in NA CHLORIDE 0.9% 100 ML IVPB SCH (17:40)
--- NOTE | 2022-02-19 19:04 | RAD REPORT ---
EXAM DESCRIPTION: MRI - Shoulder Rt Wo Cont - 02/19/2022 6:23 pm CLINICAL HISTORY: fall, weakness with abduction COMPARISON: No comparisons TECHNIQUE: Axial proton density fat saturation, parasagittal T1 weighted and para coronal proton den sity, T2 and T2 fat saturation weighted sequences were obtained. FINDINGS: Exam has significant motion degradation limitation. No occult fracture or bone bruise. There is no dislocation. Several subcortical degenerative cysts ar e seen in the superolateral humeral head. Advanced AC joint degenerative changes are present. Inferio rly directed clavicle head spur contacts the supraspinatus musculotendinous junction. There is edema signal within the supraspinatus muscle belly. The supraspinatus tendon is heterogeneou s. No abnormal fluid collection confirmed in the subacromion-subdeltoid bursa. The bursal surface fib ers appear to be intact. At least a partial thickness tear is evident tendinitis or degenerative sign al is present as well. The subscapularis or infraspinatus tendon tear. No biceps abnormalities identifiable. No joint effusions seen. Anterior labral tear is suspected. IMPRESSION: Motion degraded study showing at least partial thickness supraspinatus rotator cuff tear with tendinitis/ degenerative signal as well. Advanced AC joint degenerative change with inferiorly directed spurring contacting the supraspinatus musculotendinous junction. There is edema signal within the supraspinatus muscle belly. Suspected anterior labrum tear.
[2022-02-20] MEDS: CEFAZOLIN SODIUM 2 GM in NA CHLORIDE 0.9% 100 ML IVPB SCH ×3 (00:04→17:00)
[2022-02-20 05:44] LABS: Hematocrit 28.5 % (39.6-49.0); MCV 97.6 fL (80-100); MPV 8.1 fL (7.6-11.3); RBC Red Blood Cell Count 2.93 M/uL (4.33-5.43)
[2022-02-20 05:58] LABS: Magnesium 2.1 mg/dL (1.6-2.4); Potassium 3.3 mmol/L (3.5-5.1)
[2022-02-20] MEDS: PANTOPRAZOLE 40 MG INJ IVP SCH ×2 (08:58→21:43)
[2022-02-20] MEDS: METOPROLOL TAR 50 MG TAB PO SCH ×2 (08:58→21:43)
[2022-02-20] MEDS: INSULIN -REGULAR HUMAN 50 UNIT/0.5 ML ML SQ SCH ×4 (08:58→21:44)
[2022-02-20] MEDS ORDERED: POTASSIUM CL SA 10 MEQ TAB PO ONE (09:00)
--- NOTE | 2022-02-20 17:22 | P.PN ---
Date of Service: 02/20/22 Subjective: no acute events overnight feeling better R shoulder weakness ROS: A complete review of systems was performed and is negative except as mentioned above Physical Exam: Gen: NAD, AOx3 HEENT: normal conjunctiva, sclera anicteric CV: regular rate & rhythm, no edema Pulm: non-labored respirations, clear bilaterally Skin: dressing intact Neuro: normal speech, normal affect MSK: R shoulder - difficult with ABduction, can't go beyond ~45 degrees; b ruising at R shoulder, no locking/clicking with ROM, full ROM with some discomfort with abduction vitals reviewed Problem List L foot ulcer, osteomyelitis R shoulder weakness; rotator cuff tear, suspected anterior labrum tear Generalized weakness Rhabdomyolysis Hematemesis Hyponatremia NIDDM2 h/o EtOH dependence Hypokalemia Hyponatremia HTN MRI Brain negative pt reports suddenly becoming weak, denies LOC GPC in both blood cultures - MSSA check echo - no clear vegetation Dr. Baig consulted ID consulted - PICC + 2weeks antibiotics to cover MSSA bacteremia CPK improving with IVF, renal function stable Hematemesis 2 episodes of dark brown emesis on admission CT: inflammatory changes of distal esophagus, pt denies pain / no tenderness Patient reports drinking 1 pack of beer daily. Patient reports no withdrawal symptoms with alcohol cessation. CIWA protocol. replete electrolytes L foot ulcer, probed to bone; presumed osteomyelitis general surgery consulted; s/p debridement on 02/18 recommended minimum 1 week antibiotics will treat for 2 weeks of IV antibiotics staph bacteremia (MSSA) -start ancef 02/20 -no IE -needs 2 weeks IV antibiotics daily dressing changes with Vashe daily damp to dry, wrap and elevate R Shoulder weakness unable to fully ABduct MRI 02/19: partial thickness suprapsinatus tear, suspected anterior labral tear will discuss with ortho Code: full Dispo: SNF, ~3-4 days Time Spent Managing Pts Care (In Minutes): 25
[2022-02-20] MEDS: MELATONIN 5 MG TABLET PO PRN (21:45)
[2022-02-21] MEDS: CEFAZOLIN SODIUM 2 GM in NA CHLORIDE 0.9% 100 ML IVPB SCH ×3 (01:00→16:46)
--- NOTE | 2022-02-21 06:41 | P.PN ---
Date of Service: 02/21/22 Subjective: no acute events overnight scared of ambulating, doesn't wanlt to fall shoulder remains the same ROS: A complete review of systems was performed and is negative except as mentioned above Physical Exam: Gen: NAD, AOx3 CV: regular rate & rhythm, no edema Pulm: non-labored respirations, clear bilaterally Skin: dressing intact Neuro: normal speech, normal affect MSK: R shoulder - difficult with ABduction, can't go beyond ~45 degrees; bruising at R shoulder, no locking/clicking with ROM vitals reviewed Problem List L foot ulcer, osteomyelitis R shoulder weakness; rotator cuff tear, suspected anterior labrum tear Generalized weakness Rhabdomyolysis Hematemesis Hyponatremia NIDDM2 h/o EtOH dependence Hypokalemia Hyponatremia HTN MRI Brain negative pt reports suddenly becoming weak, denies LOC GPC in both blood cultures - MSSA check echo - no clear vegetation Dr. Baig consulted ID consulted - PICC + 2weeks antibiotics to cover MSSA bacteremia CPK improvrf with IVF, renal function stable Hematemesis 2 episodes of dark brown emesis on admission CT: inflammatory changes of distal esophagus, pt denies pain / no tenderness PICC today, will need I unclear if infectious or colonization; given resistance, will treat Patient reports drinking 1 pack of beer daily. Patient reports no withdrawal symptoms with alcohol cessation. CIWA protocol. replete electrolytes L foot ulcer, probed to bone; presumed osteomyelitis general surgery consulted; s/p debridement on 02/18 recommended minimum 1 week antibiotics will treat for 2 weeks of IV antibiotics staph bacteremia (MSSA) -start ancef 02/20 -no IE -needs 2 weeks IV antibiotics daily dressing changes with Vashe daily damp to dry, wrap and elevate R Shoulder weakness unable to fully ABduct MRI 02/19: partial thickness suprapsinatus tear, suspected anterior labral tear will discuss with ortho Code: full Dispo: SNF, ~3-4 days Time Spent Managing Pts Care (In Minutes): 25
[2022-02-21 06:56] LABS: Potassium 3.5 mmol/L (3.5-5.1)
[2022-02-21] MEDS: PANTOPRAZOLE 40 MG INJ IVP SCH ×2 (08:28→20:56)
[2022-02-21] MEDS: METOPROLOL TAR 50 MG TAB PO SCH ×2 (08:34→20:56)
[2022-02-21] MEDS: INSULIN -REGULAR HUMAN 50 UNIT/0.5 ML ML SQ SCH ×4 (08:34→21:13)
[2022-02-21] MEDS ORDERED: POTASSIUM CL SA 10 MEQ TAB PO ONE (09:00)
--- NOTE | 2022-02-21 12:32 | RAD REPORT ---
EXAM DESCRIPTION: RAD - Chest Single View - 02/21/2022 12:15 pm CLINICAL HISTORY: PICC line placement COMPARISON: Chest Single View dated 02/15/2022; CHEST SINGLE VIEW dated 06/30/2014 FINDINGS: Portable chest was obtained following placement of a left upper extremity PICC line. The c atheter tip projects over the SVC.
[2022-02-21] MEDS: LABETALOL 20 MG/4ML SYRINGE IV PRN ×2 (16:01→22:33)
[2022-02-22] MEDS ORDERED: HYDRALAZINE HCL 20 MG/ML VIAL IV ONE (01:00)
[2022-02-22] MEDS: CEFAZOLIN SODIUM 2 GM in NA CHLORIDE 0.9% 100 ML IVPB SCH ×3 (01:23→16:11)
[2022-02-22] MEDS: MELATONIN 5 MG TABLET PO PRN ×2 (02:01→21:21)
[2022-02-22 05:33] LABS: Potassium 3.3 mmol/L (3.5-5.1)
[2022-02-22] MEDS ORDERED: POTASSIUM CL SA 10 MEQ TAB PO ONE (09:00)
[2022-02-22] MEDS ORDERED: NA CHLORIDE 0.9% 100 ML IV ONE (09:00)
[2022-02-22] MEDS ORDERED: CEFAZOLIN SODIUM 2 GM/VIAL ONE (09:02)
[2022-02-22] MEDS: METOPROLOL TAR 50 MG TAB PO SCH ×2 (09:08→21:21)
[2022-02-22] MEDS: AMLODIPINE 10 MG TAB PO SCH (09:08)
[2022-02-22] MEDS: PANTOPRAZOLE 40 MG INJ IVP SCH ×2 (09:08→21:22)
[2022-02-22] MEDS: INSULIN -REGULAR HUMAN 50 UNIT/0.5 ML ML SQ SCH ×4 (09:09→21:00)
--- NOTE | 2022-02-22 09:42 | P.PN ---
Subjective Date of Service: 02/22/22 Chief Complaint: Generalized weakness Patient is lying in bed with no acute event upon examination. Not in cardiopulmonary distress. Physical Examination - Vital Signs Temperature: 98.3 F Blood Pressure: 155/75 Pulse: 78 Respirations: 16 Pulse Ox (%): 92 - Physical Exam General: Alert, In no apparent distress Respiratory: Clear to auscultation bilaterally Cardiovascular: No edema, Normal S1 S2 Gastrointestinal: Normal bowel sounds Musculoskeletal: Other (left foot osteomyelitis) Integumentary: Diabetic ulcer (left foot osteomyelitis) Neurological: Normal speech - Studies Current Medications: Acetaminophen (Acetaminophen 325 Mg Tablet) 650 mg PO Q6H PRN PRN Reason: TEMP > 100' F Hydrocodone Bitart/Acetaminophen (Hydrocodone/Apap 5/325 Mg Tab) 1 tab PO Q6H PRN PRN Reason: Pain scale 5-7 (Moderate) Last Admin: 02/18/22 20:38 Dose: 1 tab Amino Acids (Amino Acids/Protein Hydrolys 30 Ml Liquid.Pkt) 30 ml PO BID [facility] Last Admin: 02/22/22 21:00 Dose: 30 ml Amlodipine Besylate (Amlodipine 10 Mg Tab) 10 mg PO DAILY [facility] Last Admin: 02/22/22 09:08 Dose: 10 mg Cefazolin Sodium 2 gm/ Sodium (Chloride) 100 mls @ 200 mls/hr IVPB Q8HR [facility] Last Admin: 02/22/22 16:11 Dose: 100 mls Insulin Human Regular (Insulin -Regular Human 50 Unit/0.5 Ml Ml) 0 unit SQ ACHS [facility]; Protocol Last Admin: 02/22/22 21:00 Dose: Not Given Labetalol HCl (Labetalol 20 Mg/4ml Syringe) 10 mg IV Q6H PRN PRN Reason: Titrate to SBP (MUST DEFINE) Last Admin: 02/21/22 22:33 Dose: 10 mg Melatonin (Melatonin 5 Mg Tablet) 5 mg PO BEDTIME PRN PRN PRN Reason: INSOMNIA Last Admin: 02/22/22 21:21 Dose: 5 mg Metoprolol Tartrate (Metoprolol Tar 50 Mg Tab) 50 mg PO BID [facility] Last Admin: 02/22/22 21:21 Dose: 50 mg Ondansetron HCl (Ondansetron 4 Mg/2 Ml Vial) 4 mg IV Q6HP PRN PRN Reason: NAUSEA / VOMITING Last Admin: 02/19/22 17:36 Dose: 4 mg Pantoprazole Sodium (Pantoprazole 40 Mg Inj) 40 mg IVP Q12HR [facility]; Protocol Last Admin: 02/22/22 21:22 Dose: 40 mg Sodium Chloride (Flush Normal Saline 10 Ml) 10 ml IV BID [facility] Last Admin: 02/22/22 21:22 Dose: 10 ml Sodium Chloride (Sodium Chloride 0.9% 10ml Inj) 10 ml IV UD PRN PRN Reason: Diluant Assessment And Plan - Current Problems (Diagnosis) (1) Diabetic foot infection Current Visit: No Status: Acute Plan: Cultures: - 02/16 Wound culture: Positive of Staphylococcus aureus - 1/2 UC: Mixed chase - 1/2 BC: Methicillin-susceptible Staphylococcus aureus bacteremia - 02/18 and BC: Negative Antibiotics: - Switched IV Vancomycin to Cefazolin from 02/19 to present - Recommend switch to Vancomycin when d/c to SNF - The course of antibiotics should be total of 6 weeks secondary to osteomyelitis of left foot with diabetic foot ulcer Please apply medihoney and alginate cover by dry dressing and kerlix on the left foot wound on Tuesday, Tuesday and Tuesday. Elevated the foot when possible. (2) Diabetic ulcer of right foot due to type 2 diabetes mellitus Current Visit: No Status: Acute Plan: Cultures: - 02/16 Wound culture: Positive of Staphylococcus aureus - 1/2 UC: Mixed chase - /2 BC: Methicillin-susceptible Staphylococcus aureus bacteremia - 02/18 and BC: Negative Antibiotics: - Switched IV Vancomycin to Cefazolin from 02/19 to - Recommend switch to Vancomycin when d/c to SNF - The course of antibiotics should be total of 6 weeks secondary to osteomyelitis of left foot with diabetic foot ulcer Please apply medihoney and alginate cover by dry dressing and kerlix on the left foot wound on Tuesday, Tuesday and Tuesday. Elevated the foot when possible. (3) Osteomyelitis Current Visit: No Status: Resolved Plan: Cultures: - 02/16 Wound culture: Positive of Staphylococcus aureus - 1/2 UC: Mixed chase - 1/2 BC: Methicillin-susceptible Staphylococcus aureus bacteremia - 02/18 and BC: Negative Antibiotics: - Switched IV Vancomycin to Cefazolin from 02/19 to present - Recommend switch to Vancomycin when d/c to SNF - The course of antibiotics should be total of 6 weeks secondary to osteomyelitis of left foot with diabetic foot ulcer Please apply medihoney and alginate cover by dry dressing and kerlix on the left foot wound on Tuesday, Tuesday and Tuesday. Elevated the foot when possible (4) Uncontrolled diabetes mellitus Current Visit: No Status: Acute Plan: Per primary team management (5) Hypertension Current Visit: No Status: Acute Plan: Per primary team management (6) PAD (peripheral artery disease) Current Visit: No Status: Acute Plan: Per primary team management (7) Hyponatremia Current Visit: No Status: Resolved Plan: Per primary team management (8) Rhabdomyolysis Current Visit: Yes Status: Acute Plan: 02/19 CK MB trending down. Continue IV fluid per primary team - Plan - Diabetic neuropathy - Anemia of chronic disease - Moderate protein calorie malnutrition ID will follow up the patient as needed. Case has been discussed with Dr. Norris N Physician Review: Patient Assessed, Agree with Above Assessment and Plan
--- NOTE | 2022-02-22 10:52 | P.CNS ---
Date of Consult: 02/22/22 Chief Complaint: right shoulder pain History of Present Illness: chronic right shoulder pain, decreased Rom. preceding recent fall, he has functional deficits Allergies No Known Drug Allergies Allergy (Verified 02/16/22 09:56) Unknown Home medications list reviewed: Yes Home Medications: Amlodipine [Norvasc] 10 mg PO DAILY 12/15/16 Metformin ER [Glucophage ER] 500 mg PO BID 12/15/16 Metoprolol Tartrate [Lopressor*] 50 mg PO BID 12/15/16 lisinopriL [Prinivil] 20 mg PO BID 12/15/16 - Past Medical/Surgical History Diabetic: Yes -: NIDDM -: HTN -: 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 -: Left eye - repair retinal detachment -: Amputation right great toe - Social History Alcohol use: Yes CD- Drugs: No Caffeine use: Yes Place of Residence: Home Review of Systems 10-point ROS is otherwise unremarkable Physical Examination Temp Pulse Resp BP Pulse Ox 98.3 F 78 16 155/75 H 92 02/22/22 09:41 02/22/22 09:41 02/22/22 09:41 02/22/22 09:41 02/22/22 09:41 General: Oriented x3 HEENT: Atraumatic Musculoskeletal: Other (shoulder pain and decreased ROM active abduction 40 degrees passive 170 degrees on right) Imagings Data: TECHNIQUE: Axial proton density fat saturation, parasagittal T1 weighted and para coronal proton density, T2 and T2 fat saturation weighted sequences were obtained. FINDINGS: Exam has significant motion degradation limitation. No occult fracture or bone bruise. There is no dislocation. Several subcortical degenerative cysts are seen in the superolateral humeral head. Advanced AC joint degenerative changes are present. Inferiorly directed clavicle head spur contacts the supraspinatus musculotendinous junction. There is edema signal within the supraspinatus muscle belly. The supraspinatus tendon is heterogeneous. No abnormal fluid collection confirmed in the subacromion- subdeltoid bursa. The bursal surface fibers appear to be intact. At least a partial thickness tear is evident tendinitis or degenerative signal is present as well. The subscapularis or infraspinatus tendon tear. No biceps abnormalities identifiable. No joint effusions seen. Anterior labral tear is suspected. IMPRESSION: Motion degraded study showing at least partial thickness supraspinatus rotator cuff tear with tendinitis/ degenerative signal as well. Advanced AC joint degenerative change with inferiorly directed spurring contact ing the supraspinatus musculotendinous junction. There is edema signal within the supraspinatus muscle belly. Suspected anterior labrum tear. Dictated By: Aly Kellogg MD 02/19/22 190 - Problems (1) Right rotator cuff tear arthropathy Current Visit: Yes Status: Acute Plan: manage this problem in this outpatient clinic, this may require elective surgery outpatient to resolve, he will need cardiac clearance.
--- NOTE | 2022-02-22 13:20 | PN ---
Subjective: Patient lying in bed. No new acute event. Denies any headache, nausea, vomiting, chest pain, abdominal pain, constipation, or diarrhea. Objective: Vital Signs: Severe. Lungs: Clear to auscultation. Heart: S1, S2. Regular. Abdomen: Soft, nontender. Bowel sounds present. Extremities: No edema. Laboratory Data: WBC 4.5, hemoglobin 9.9, platelets 238. BUN 11, creatinine 0.55, albumin level 2.3 . Assessment And Plan: Methicillin-susceptible Staphylococcus aureus bacteremia, osteomyelitis of left foot with diabetic foot ulcer, diabetic neuropathy. Continue cefazolin, total of 6 weeks, Medihoney , and alginate to the wound site. Keep leg elevated when possible. Anemia of chronic disease. Mode rate protein-calorie malnourishment. We will follow patient as needed. NF/MODL Voice ID: [id number] Report ID: [id number]
--- NOTE | 2022-02-22 17:42 | P.PN ---
Date of Service: 02/22/22 Subjective: no acute events overnight no new / worsening symptoms PICC placed ROS: A complete review of systems was performed and is negative except as mentioned above Physical Exam: Gen: NAD, AOx3 CV: regular rate & rhythm, no edema Pulm: non-labored respirations, clear bilaterally Skin: dressing intact Neuro: normal speech, normal affect MSK: R shoulder - difficult with ABduction, can't go beyond ~45 degrees; bruising at R shoulder, no locking/clicking with ROM vitals reviewed PICC in place Problem List L foot ulcer, osteomyelitis R shoulder weakness; rotator cuff tear, suspected anterior labrum tear Generalized weakness Rhabdomyolysis Hematemesis Hyponatremia NIDDM2 h/o EtOH dependence Hypokalemia Hyponatremia HTN MRI Brain negative pt reports suddenly becoming weak, denies LOC GPC in both blood cultures - MSSA check echo - no clear vegetation Dr. Baig consulted ID consulted - PICC + 2weeks antibiotics to cover MSSA bacteremia, may need 6 wks for osteo CPK improvred with IVF, renal function stable Hematemesis, resolved 2 episodes of dark brown emesis on admission CT: inflammatory changes of distal esophagus, pt denies pain / no tenderness Patient reports drinking 1 pack of beer daily. Patient reports no withdrawal symptoms with alcohol cessation. CIWA protocol. replete electrolytes L foot ulcer, probed to bone; presumed osteomyelitis general surgery consulted; s/p debridement on 02/18 recommended minimum 1 week antibiotics ID recommends full 6 weeks staph bacteremia (MSSA) -start ancef 02/20 -no IE -needs 2 weeks IV antibiotics for bacteremia, and ID recommending 6 full weeks for osteo daily dressing changes with Vashe daily damp to dry, wrap and elevate R Shoulder weakness unable to fully ABduct MRI 02/19: partial thickness suprapsinatus tear, suspected anterior labral tear ortho to see patient today Code: full Dispo: SNF, once accepted; manager social media consulted Time Spent Managing Pts Care (In Minutes): 25
[2022-02-22] MEDS: AMINO ACIDS/PROTEIN HYDROLYS 30 ML LIQUID.PKT PO SCH (21:00)
[2022-02-23] MEDS: CEFAZOLIN SODIUM 2 GM in NA CHLORIDE 0.9% 100 ML IVPB SCH ×3 (01:48→16:32)
[2022-02-23 04:21] LABS: Hematocrit 31.1 % (39.6-49.0); MCV 97.8 fL (80-100); MPV 7.7 fL (7.6-11.3); RBC Red Blood Cell Count 3.18 M/uL (4.33-5.43)
[2022-02-23 04:32] LABS: Potassium 3.7 mmol/L (3.5-5.1)
[2022-02-23] MEDS: INSULIN -REGULAR HUMAN 50 UNIT/0.5 ML ML SQ SCH ×4 (07:30→20:54)
[2022-02-23] MEDS: METOPROLOL TAR 50 MG TAB PO SCH ×2 (08:33→20:54)
[2022-02-23] MEDS: AMLODIPINE 10 MG TAB PO SCH (08:34)
[2022-02-23] MEDS: AMINO ACIDS/PROTEIN HYDROLYS 30 ML LIQUID.PKT PO SCH ×2 (08:35→20:54)
[2022-02-23] MEDS ORDERED: POTASSIUM CL SA 10 MEQ TAB PO ONE (09:00)
[2022-02-23] MEDS ORDERED: PANTOPRAZOLE 40MG TABLET PO SCH (09:00)
--- NOTE | 2022-02-23 10:28 | P.PN ---
Subjective Date of Service: 02/23/22 Chief Complaint: Generalized weakness Patient is lying in bed with no acute event upon examination. Not in cardiopulmonary distress. Physical Examination - Vital Signs Temperature: 97.8 F Blood Pressure: 163/78 Pulse: 79 Respirations: 16 Pulse Ox (%): 92 - Physical Exam General: Alert, In no apparent distress, Oriented x3 Respiratory: Clear to auscultation bilaterally Cardiovascular: No edema, Normal pulses, Normal S1 S2 Gastrointestinal: Normal bowel sounds Musculoskeletal: No swelling, Other (left foot osteomyelitis) Integumentary: Diabetic ulcer (left foot osteomyelitis), Other (Multiple abrasions in kness and elbows secondary to a fall at home prior admission) Neurological: Normal speech, Normal affect - Studies Current Medications: Acetaminophen (Acetaminophen 325 Mg Tablet) 650 mg PO Q6H PRN PRN Reason: TEMP > 100' F Hydrocodone Bitart/Acetaminophen (Hydrocodone/Apap 5/325 Mg Tab) 1 tab PO Q6H PRN PRN Reason: Pain scale 5-7 (Moderate) Last Admin: 02/18/22 20:38 Dose: 1 tab Amino Acids (Amino Acids/Protein Hydrolys 30 Ml Liquid.Pkt) 30 ml PO BID [facility] Last Admin: 02/23/22 08:35 Dose: 30 ml Amlodipine Besylate (Amlodipine 10 Mg Tab) 10 mg PO DAILY [facility] Last Admin: 02/23/22 08:34 Dose: 10 mg Cefazolin Sodium 2 gm/ Sodium (Chloride) 100 mls @ 200 mls/hr IVPB Q8HR [facility] Last Admin: 02/23/22 08:33 Dose: 100 mls Insulin Human Regular (Insulin -Regular Human 50 Unit/0.5 Ml Ml) 0 unit SQ ACHS [facility]; Protocol Last Admin: 02/22/22 21:00 Dose: Not Given Labetalol HCl (Labetalol 20 Mg/4ml Syringe) 10 mg IV Q6H PRN PRN Reason: Titrate to SBP (MUST DEFINE) Last Admin: 02/21/22 22:33 Dose: 10 mg Melatonin (Melatonin 5 Mg Tablet) 5 mg PO BEDTIME PRN PRN PRN Reason: INSOMNIA Last Admin: 02/22/22 21:21 Dose: 5 mg Metoprolol Tartrate (Metoprolol Tar 50 Mg Tab) 50 mg PO BID [facility] Last Admin: 02/23/22 08:33 Dose: 50 mg Ondansetron HCl (Ondansetron 4 Mg/2 Ml Vial) 4 mg IV Q6HP PRN PRN Reason: NAUSEA / VOMITING Last Admin: 02/19/22 17:36 Dose: 4 mg Pantoprazole Sodium (Pantoprazole 40mg Tablet) 40 mg PO DAILYAC DANIEL; Protocol Last Admin: 02/23/22 08:33 Dose: 40 mg Sodium Chloride (Flush Normal Saline 10 Ml) 10 ml IV BID DANIEL Last Admin: 02/23/22 08:34 Dose: 10 ml Sodium Chloride (Sodium Chloride 0.9% 10ml Inj) 10 ml IV UD PRN PRN Reason: Diluant Microbiology 02/15/22 15:20 Blood - Blood Aerobic Blood Culture - Final Staph Aureus 02/15/22 15:20 Blood - Blood Blood Culture Gram Stain - Final 02/15/22 15:20 Blood - Blood Anaerobic Blood Culture - Final 02/15/22 15:20 Blood - Blood Gram Stain - Final 02/15/22 11:58 Clean Catch Urine Donaldson Count - Final >100,000 CFU/ML. 02/15/22 11:58 Clean Catch Urine - Final MIXED CHASE. 1 Left foot wound: Positive Staph Aureus Assessment And Plan - Current Problems (Diagnosis) (1) Diabetic foot infection Current Visit: No Status: Acute Plan: Cultures: - 02/16 Wound culture: Positive of Staphylococcus aureus - 1/2 UC: Mixed chase - /2 BC: Methicillin-susceptible Staphylococcus aureus bacteremia - 02/18 and 02/19 BC: Negative Antibiotics: - 02/19 switched IV Vancomycin to Cefazolin - Recommend to continue IV Cefazolin - Recommend to switch to Vancomycin when d/c if not able to continue with cefazoline - The course of antibiotics should be total of 6 weeks secondary to osteomyelitis of left foot with diabetic foot ulcer Please apply medihoney and alginate cover by dry dressing and kerlix on the left foot wound on Tuesday, Tuesday and Tuesday. Elevated the foot when possible. (2) Diabetic ulcer of right foot due to type 2 diabetes mellitus Current Visit: No Status: Acute Plan: Cultures: - 02/16 Wound culture: Positive of Staphylococcus aureus - 1/2 UC: Mixed chase - 1/2 BC: Methicillin-susceptible Staphylococcus aureus bacteremia - 02/18 and 02/19 BC: Negative Antibiotics: - 02/19 switched IV Vancomycin to Cefazolin - Recommend to continue IV Cefazolin - Recommend to switch to Vancomycin when d/c if not able to continue with cefazoline - The course of antibiotics should be total of 6 weeks secondary to osteomyelitis of left foot with diabetic foot ulcer Please apply medihoney and alginate cover by dry dressing and kerlix on the left foot wound on Tuesday, Tuesday and Tuesday. Elevated the foot when possible.. (3) Osteomyelitis Current Visit: No Status: Resolved Plan: Cultures: - 02/16 Wound culture: Positive of Staphylococcus aureus - 02/15 UC: Mixed chase - 02/15 BC: Methicillin-susceptible Staphylococcus aureus bacteremia - 02/18 and 02/19 BC: Negative Antibiotics: - 02/19 switched IV Vancomycin to Cefazolin - Recommend to continue IV Cefazolin - Recommend to switch to Vancomycin when d/c if not able to continue with cefazoline - The course of antibiotics should be total of 6 weeks secondary to osteomyelitis of left foot with diabetic foot ulcer Please apply medihoney and alginate cover by dry dressing and kerlix on the left foot wound on Tuesday, Tuesday and Tuesday. Elevated the foot when possible. (4) Uncontrolled diabetes mellitus Current Visit: No Status: Acute Plan: Per primary team management (5) Hypertension Current Visit: No Status: Acute Plan: Per primary team management (6) PAD (peripheral artery disease) Current Visit: No Status: Acute Plan: Per primary team management (7) Hyponatremia Current Visit: No Status: Resolved Plan: Per primary team management (8) Rhabdomyolysis Current Visit: Yes Status: Acute Plan: 02/19 CK MB trending down. Continue IV fluid per primary team - Plan - Diabetic ulcer of right foot and osteromyelitis secondary to type 2 diabetes mellitus: 1. Recommend to continue current IV antibiotic 2. Recommend switch to Vancomycin when d/c if not able to continue Cefazolin 3. The course of antibiotics should be total of 6 weeks secondary to osteomye litis of left foot with diabetic foot ulcer 4. Please apply medihoney and alginate cover by dry dressing and kerlix on the left foot wound on Tuesday, Tuesday and Tuesday. Elevated the foot when possible - Diabetic neuropathy - Anemia of chronic disease - Moderate protein calorie malnutrition ID will follow up the patient as needed. Case has been discussed with Dr. Norris N Physician Review: Patient Assessed, Agree with Above Assessment and Plan
--- NOTE | 2022-02-23 13:59 | P.PN ---
Subjective Date of Service: 02/23/22 Chief Complaint: Generalized weakness Patient has no new complaint. He is eating well. No recorded fever. Physical Examination - Vital Signs Temperature: 98.6 F Blood Pressure: 159/74 Pulse: 80 Respirations: 14 Pulse Ox (%): 97 Assessment And Plan - Plan Physical Exam: Gen: NAD, AOx3 CV: regular rate & rhythm, no edema Pulm: clear bilaterally Skin: dressing intact Neuro: normal speech, normal affect. No focal motor deficits vitals reviewed PICC in place Problem List L foot ulcer, osteomyelitis R shoulder weakness; rotator cuff tear, suspected anterior labrum tear Generalized weakness Rhabdomyolysis Hematemesis Hyponatremia NIDDM2 h/o EtOH dependence Hypokalemia Hyponatremia HTN pt reports suddenly becoming weak, denies LOC GPC in both blood cultures - MSSA check echo - no clear vegetation ID consulted - PICC + 2weeks antibiotics to cover MSSA bacteremia, may need 6 wks for osteo CPK improvred with IVF, renal function stable Hematemesis, resolved Patient had 2 episodes of dark brown emesis on admission CT: inflammatory changes of distal esophagus, pt denies pain / no tenderness Patient reports drinking 1 pack of beer daily. Patient reports no withdrawal symptoms with alcohol cessation. CIWA protocol. No signs or symptoms of alcohol withdrawal L foot ulcer, probed to bone; presumed osteomyelitis general surgery consulted; patient seen by Dr. Baig, s/p debridement on 02/18 ID recommends full 6 weeks staph bacteremia (MSSA) -start ancef 02/20 -no IE on echo -6 weeks of antibiotics for culture recommended by infectious disease. daily dressing changes with Vashe daily damp to dry, wrap and elevate R Shoulder weakness unable to fully ABduct MRI 02/19: partial thickness suprapsinatus tear, suspected anterior labral tear ortho seen patient and recommended outpatient work-up. Code: full Dispo: Home with IV Ancef via home health.
[2022-02-24] MEDS: MELATONIN 5 MG TABLET PO PRN (00:25)
[2022-02-24] MEDS: CEFAZOLIN SODIUM 2 GM in NA CHLORIDE 0.9% 100 ML IVPB SCH (00:28)
[2022-02-24 01:09] VITALS: O2SAT 94
[2022-02-24 05:18] LABS: Potassium 3.7 mmol/L (3.5-5.1)
[2022-02-24 05:49] VITALS: BP 144/73; TEMP 97.6
--- NOTE | 2022-02-24 12:04 | P.DS ---
Admission Date: 02/15/22 Discharge Date: 02/24/22 Disposition: [place] HOME/HOME HEALTH CARE Discharge Condition: GOOD Reason for Admission: Generalized weakness Brief History of Present Illness: Patient is a 66-year-old male with a past medical history significant for DM 2, hypertension, alcohol abuse who presented with complaint of generalized weakness that has been ongoing for 2 days. Patient reported that he fell and was on the floor for about 12 hours. Patient denied hitting his head or losing consciousness. Patient was found on the floor by family. Patient also reported that he is a daily drinker. While in the ER he started complaining of left arm weakness as he was unable to lift his arm up. Of note, Patient was observed to have bouts of hematemesis while in the ER after his MRI. He was admitted for further management. Hospital Course: Diagnosis L foot ulcer, osteomyelitis R shoulder weakness; rotator cuff tear, suspected anterior labrum tear Generalized weakness Rhabdomyolysis Hematemesis Hyponatremia NIDDM2 h/o EtOH dependence Hypokalemia Hyponatremia HTN Patient admitted to the medical floor. He was noted to have an ulcer on the left foot which proved to the bone. Patient presumed to have osteomyelitis. He was seen by infectious disease to assist with antibiotic management. GPC in both blood cultures - MSSA echo - no clear vegetation ID c recommended PICC + 6 wks IV cefazolin for osteo and bacteremia He had elevated CPK which improved with IV hydration Renal function was stable Patient had 2 episodes of dark brown emesis on admission Hematemesis resolved. No more episodes. CT suggested inflammatory changes of distal esophagus. Patient reports drinking 1 pack of beer daily. Patient reports no withdrawal symptoms with alcohol cessation. He was placed on CIWA protocol. No signs or symptoms of alcohol withdrawal L foot ulcer, probed to bone; presumed osteomyelitis General surgery consulted; patient seen by Dr. Baig, s/p debridement on 02/18 ID recommends 6 weeks Daily dressing changes with Vashe daily damp to dry recommended by surgery. R Shoulder weakness Patient is unable to fully ABduct MRI of the shoulder 02/19: partial thickness suprapsinatus tear, suspected anterior labral tear ortho seen patient and recommended outpatient work-up. Overall patient has clinically improved. Outpatient IV Cefazolin has been arranged via home health. Vitals are stable. Patient is deemed stable for discharge. Vital Signs/Physical Exam: Temp Pulse Resp BP Pulse Ox 97.6 F 68 18 144/73 H 95 02/24/22 04:00 02/24/22 04:00 02/24/22 04:00 02/24/22 04:00 02/24/22 04:00 General: Alert, In no apparent distress, Oriented x3 HEENT: Mucous membr. moist/pink Neck: JVD not distended Respiratory: Clear to auscultation bilaterally, Normal air movement Cardiovascular: No edema, Regular rate/rhythm, Normal S1 S2 Gastrointestinal: Soft and benign, Non-distended Integumentary: No cyanosis Neurological: Normal strength at 5/5 x4 extr Laboratory Data at Discharge: WBC 4.70 K/uL (4.3-10.9) 02/23/22 04:10 Hgb 10.6 g/dL (13.6-17.9) L 02/23/22 04:10 Hct 31.1 % (39.6-49.0) L 02/23/22 04:10 Plt Count 256 K/uL (152-406) 02/23/22 04:10 PT 15.5 SECONDS (9.5-12.5) H 02/15/22 20:30 INR 1.41 02/15/22 20:30 APTT 24.7 SECONDS (24.3-36.9) 02/15/22 10:51 Sodium 134 mmol/L (136-145) L 02/24/22 04:15 Potassium 3.7 mmol/L (3.5-5.1) 02/24/22 04:15 BUN 11 mg/dL (7-18) 02/24/22 04:15 Creatinine 0.63 mg/dL (0.70-1.30) L 02/24/22 04:15 Glucose 162 mg/dL (74-106) H 02/24/22 04:15 Phosphorus 2.7 mg/dL (2.5-4.9) 02/15/22 20:30 Magnesium 2.1 mg/dL (1.6-2.4) 02/20/22 05:08 Total Bilirubin 0.8 mg/dL (0.2-1.0) 02/19/22 05:23 AST 91 U/L (15-37) H 02/19/22 05:23 ALT 79 U/L (16-61) H 02/19/22 05:23 Alkaline Phosphatase 44 U/L (45-117) L 02/19/22 05:23 Triglycerides 97 mg/dL (<150) 02/16/22 02:21 Cholesterol 141 mg/dL (<200) 02/16/22 02:21 HDL Cholesterol 39 mg/dL (40-60) L 02/16/22 02:21 Cholesterol/HDL Ratio 3.62 02/16/22 02:21 Home Medications: Amlodipine [Norvasc] 10 mg PO DAILY 12/15/16 Metformin ER [Glucophage ER] 500 mg PO BID 12/15/16 Metoprolol Tartrate [Lopressor*] 50 mg PO BID 12/15/16 lisinopriL [Prinivil] 20 mg PO BID 12/15/16 Followup: Eric Baig MD [ACTIVE - CAN ADMIT] - (call for an apointment for next week.) NONE,NONE [Primary Care Provider] - Time spent managing pt's care (in minutes): 35
== END 2022-02-24 06:22 | disposition home health service (06) | DRG 623 ==
LOC: ER 09:44 → ERHOLD 15:30 → 2ND 02-16 08:09
PROVIDERS: ADMIT Internal Medicine; ATTEND Internal Medicine
PROC: 0JBR0ZZ Excision of Left Foot Subcutaneous Tissue and Fascia, Open Approach (ICD-10-PCS; principal; 2022-02-18 12:30)
PROC: 02HV33Z Insertion of Infusion Device into Superior Vena Cava, Percutaneous Approach (ICD-10-PCS; 2022-02-21)
DX: E11.69 Type 2 diabetes mellitus with other specified complication (principal); E44.0 Moderate protein-calorie malnutrition; M62.82 Rhabdomyolysis; E87.1 Hypo-osmolality and hyponatremia; K92.0 Hematemesis; M86.8X7 Other osteomyelitis, ankle and foot; R78.81 Bacteremia; E11.621 Type 2 diabetes mellitus with foot ulcer; L97.529 Non-pressure chronic ulcer of other part of left foot with unspecified severity; E11.51 Type 2 diabetes mellitus with diabetic peripheral angiopathy without gangrene; E11.40 Type 2 diabetes mellitus with diabetic neuropathy, unspecified; I10 Essential (primary) hypertension; E87.6 Hypokalemia; M75.101 Unspecified rotator cuff tear or rupture of right shoulder, not specified as traumatic; F10.10 Alcohol abuse, uncomplicated; M12.811 Other specific arthropathies, not elsewhere classified, right shoulder; D63.8 Anemia in other chronic diseases classified elsewhere; B95.61 Methicillin susceptible Staphylococcus aureus infection as the cause of diseases classified elsewhere; R77.8 Other specified abnormalities of plasma proteins; Z68.27 Body mass index [BMI] 27.0-27.9, adult; Z79.84 Long term (current) use of oral hypoglycemic drugs; Z79.899 Other long term (current) drug therapy; Z87.891 Personal history of nicotine dependence; Z89.411 Acquired absence of right great toe; Z89.422 Acquired absence of other left toe(s); Z20.822 Contact with and (suspected) exposure to COVID-19; W18.30XA Fall on same level, unspecified, initial encounter
CPT/HCPCS: 0240U; 36415; 36569; 70450; 70551; 71045; 74177; 80048; 80053; 80061; 80076; 80202; 81001; 81003; 81015; 82550; 82947; 83605; 83735; 83880; 83930; 83935; 84100; 84132; 84145; 84300; 84439; 84443; 84484; 85014; 85018; 85025; 85027; 85610; 85730; 86850; 86900; 86901; 87040; 87070; 87075; 87077; 87086; 87088; 87186; 87205; 87324; 88304; 92523; 93005; 93306; 93925; 96361; 96365; 96366; 97116; 97129; 97161; 97530; 99251; 99285; C9113; J0360; J0692; J1815; J2001; J2250; J2405; J2704; J3010; J3370; J3480; J7030; J7040; J7050; Q9967

== ENCOUNTER 2022-03-20 09:15 | Emergency (ER) | payer BC ==
--- OUTSIDE RECORDS SUMMARY | 2022-03-20 09:19 | XMS REPORT | Continuity of Care Document ---
:1955 Author Organization [facility] t Address [address] [place] [address] Care Team Providers Name Role Phone System, Pcp Not In Primary Care Physician Unavailable Gloria ARIAS Attending Clinician Unavailable Luciano Allen Attending Clinician Unavailable Rosita Sullivan Attending Clinician Unavailable Masoud ALDRICH, Jo Al Attending Clinician Unavailable DIVINE RANDOLPH Attending Clinician Unavailable Only, Ang Db Test Attending Clinician Unavailable Divine Randolph MD Attending Clinician Payers Payer Name Policy Type Policy Number Effective Date Expiration Date S ciarra [employer] 6 [id number] 2018 Common Spiri t Blue Shield 00:00:[address] [facility] Problems Condition Condition Condition Status Onset Resolution Last Treating Co mments Source Name Details Category Date Date Treatment Clinician Date Non-pressu Non-pressu Problem C ommon re chronic re chronic Sp barbara ulcer of ulcer of - [facility] left heel left heel [facility] limited to limited to Ce nter breakdown breakdown of skin of skin [id number] White coat Problem Com mon syndrome Spirit with - [facility] diagnosis [facility] [id number] Controlled Problem Co mmon type 2 Spirit diabetes - [facility] mellitus [facility] complicati [facility], Center without long-term current use of insulin [id number] Dietary Problem Commo n surveillan Spirit ce and - [facility] counseling [facility] [id number] Hyperlipid Problem Com mon emia, Spirit unspecifie - [facility] d hyperlipid [facility] emia [facility] [id number] Overweight Problem Co mm (BMI Spirit 25.0-29.9) [facility] [id number] Open wound Problem Co mmon [facility] Allergies, Adverse Reactions, Alerts Allergy Allergy Status Severity Reaction(s) Onset Inactive Treating Comm ents Source Name Type Date Date Clinician NO KNOWN Drug Active [facility] ALLERGIE Class ity [facility] Social History Social Habit Start Date Stop Date Quantity Comments Source Exposure to SARS-CoV-2 Yes Un [facility] (event) [facility] History of Tobacco Use Co on [facility] Sex Assigned At Com [facility] Smoking Status Start Date Stop Date Source Unknown if ever smoked [facility] Former Smoker 2022-02-26 00:00:00 2022-02-26 00:00:00 Common S pirit [facility] nter Medications Ordered Filled Start Stop Current Ordering Indication Dosage Frequency Signature Comments Components Source Medication Medication Date Date Medication? Clinician (SIG) Name Name Metformin Metformin Yes Rosita 1 tablet Common HCl HCl 7-02 Millender with a Spirit 00:00: meal - [facility] 00 [facility] Aspir-Low Aspir-Low No 1{table QD Aspir-Low 81 [...] t} 20 mg metFORMIN metFORMIN No 1{table TID metFORMIN HCl 500 MG HCl 500 MG [...] t} 20 mg metFORMIN metFORMIN No 1{table TID metFORMIN HCl 500 MG HCl 500 MG t_with_ HCl 500 MG a_meal} metFORMIN metFORMIN No 1{table BID metFORMIN HCl [...] Lisinopril Yes Rosita 1 tablet Common Millender Spirit [facility] Aspir-Low Aspir-Low Yes Rosita 1 tablet Common Millender Spirit [facility] GlipiZIDE GlipiZIDE Yes Rosita 1 tablet Common Millender Spirit [facility] Amlodipine Amlodipine Yes Rosita 1 tablet Common Besylate Besylate Millender Sp barbara [facility] Metoprolol Metoprolol Yes Rosita 1 tablet Common Tartrate Tartrate Millender with food [facility] glipiZIDE glipiZIDE No 1{table BID glipiZIDE 10 [...] glipiZIDE 10 MG 10 MG 10 MG amLODIPine amLODIPine No 1{table QD amLODIPine Besylate 10 Besylate 10 t} Besylate MG MG 10 MG Vital Signs Vital Name Observation Time Observation Value Comments Source height 2021-11-18 09:20:00 74.00 [in_i] Common S pirit - [facility] Medical C enter weight 2021-11-18 09:20:00 214 [lb_av] Common S pirit - [facility] C enter bmi 2021-11-18 09:20:00 27.47 kg/m2 Common S pirit - [facility] C enter height 2021-03-11 09:20:00 74.00 [in_i] Common S pirit - [facility] C enter weight 2021-03-11 09:20:00 208.9 [lb_av] Common Spirit - [facility] C enter bmi 2021-03-11 09:20:00 26.82 kg/m2 Common S pirit - [facility] Medical C enter Procedures This patient has no known procedures. Encounters Start End Encounter Admission Attending Care Care Encounter Source Date/Time Date/Time Type Type Clinicians Facility Department ID 2022-03-11 [facility] [id number] 2 Common 10:14:00 [id number] [facility] 2022-03-05 [facility] [id number] 2 Common 09:43:00 [id number] [facility] 2022-02-25 [facility] [id number] 2 Common 11:47:00 [id number] [facility] 2021-11-16 [facility] [id number] 2 Common 14:11:01 [facility] 2021-07-15 Outpatient Arias, Na [facility] [id number] 2 Common 09:29:00 [facility] 2021-04-13 Outpatient Arias, Na [facility] [id number] 2 Common 13:28:00 [facility] 2021-03-11 Outpatient Arias, Na [facility] [id number] 2 Common 14:39:02 [facility] 2021-03-11 Outpatient Arias, Na [facility] [id number] 2 Common 14:12:56 [facility] 2021-03-11 Outpatient Arias, Na [facility] [id number] 2 Common 12:50:14 [id number] [facility] 2021-03-11 Outpatient Arias, Na [facility] [id number] 2 Common 12:41:34 [id number] [facility] 2021-03-11 Outpatient Arias, Na [facility] [id number] 2 Common 12:21:41 [id number] [facility] 2021-03-11 Outpatient [facility] [id number] Common 12:18:05 [id number] [facility] 2021-03-11 Outpatient Alejandro, Kin [facility] [id number] Common 12:08:27 [id number] [facility] 2021-03-11 Outpatient Millender, STLMLC ST[facility] [id number] Common 11:36:59 Rosita 17954 [facility] 2021-03-11 Outpatient Millender, STLMLC STL[facility]C [id number] Common 11:36:29 Rosita [id number] [facility] 2022-03-10 2022-03-10 (TEL) STLMLC ST[facility] [id number] Co mmon 00:00:00 00:00:00 [facility] 2022-03-02 2022-03-02 (TEL) STLMLC STL[facility] [id number] Co mmon 00:00:00 00:00:00 [facility] 2022-02-24 2022-02-24 (TEL) STLMLC STL[facility] [id number] Co mmon 00:00:00 00:00:00 [facility] 2021-11-18 2021-11-18 OL DIG E/M STLMLC STLMLC [id number] Common 00:00:00 00:00:00 [facility] -20 Spir it [facility] 2021-07-15 2021-07-15 OL DIG E/M STLMLC STLMLC [id number] Common 00:00:00 00:00:00 [facility] 20 Spir it [facility] 2021-03-11 2021-03-11 OL DIG E/M STLMLC STLMLC [id number] Common 00:00:00 00:00:00 [facility] 01-03 Spir it [facility] 2021-02-19 2021-02-19 (TEL) STLMLC STLMLC [id number] Co mmon 00:00:00 00:00:00 [facility] 2021-01-06 2021-01-06 (TEL) STLMLC STLMLC [id number] Co mmon 00:00:00 00:00:00 [facility] 2021-01-04 2021-01-04 (TEL) STLMLC STLMLC [id number] Co mmon 00:00:00 00:00:00 [facility] 2020-10-21 2020-10-21 Letter MIR Meredith [id number] Univers 00:00:00 00:00:00 (Out) Jo BIANCHI [id number] it [facility] [id number] Dustin as [phone] [address] 2020-10-19 2020-10-19 Outpatient Leon RANDOLPH [facility] [id number] Univers 17:00:00 17:00:00 DIVINE barrios [facility] 2020-10-19 2020-10-19 Laboratory Only, Ang Db Test [facility] [id number] Univers 16:28:44 16:43:44 [facility] [id number] [facility] [place] [id number] Dustin as Christian?Blea [phone] Or jorge alberto [place] [address] [facility] 2020-06-19 2020-06-19 Outpatient [facility]C ST[facility] [id number] Common 00:00:00 00:00:00 [facility] 2020-05-01 2020-05-01 Outpatient STLMLC ST[facility] [id number] Common 00:00:00 00:00:00 [facility] 2020-03-05 2020-03-05 Outpatient STL[facility]C ST[facility] [id number] Common 00:00:00 00:00:00 [facility] 2020-02-29 2020-02-29 Outpatient STLMLC ST[facility] [id number] Common 00:00:00 00:00:00 [facility] 2019-09-26 2019-09-26 [facility] [id number] Common 11:00:00 11:00:00 [facility] [address] [facility] 2019-08-21 2019-08-21 [facility] [id number] Common 13:51:00 13:51:00 t [facility] [address] [facility] 2019-08-20 2019-08-20 [facility] [id number] Common 10:17:00 10:17:00 t [facility] [address] [facility] 2019-08-20 2019-08-20 [facility] [id number] Common 10:00:00 10:00:00 t [facility] [address] [facility] 2018-10-04 2018-10-04 [facility] [id number] Common 10:15:00 10:15:00 t [facility]gent [facility] 2018-01-25 2018-01-25 [facility] [id number] Common 11:15:00 11:15:00 [facility] 2017-08-24 2017-08-24 Outpatient Yina Christina [id number] Common 13:30:00 13:30:00 [facility] Results This patient has no known results.
--- NOTE | 2022-03-20 09:49 | EDPHYS ---
Physician Documentation [facility] Name: Kelby Paris Jr Age: 66 yrs Sex: Male : 1955 Arrival Date: 03/20/2022 Time: 09:18 Bed 20 Private MD: Artem Vermah ED Physician Wyatt Keller HPI: 03/20 09:34 This 66 yrs old Male presents to ER via Wheelchair with complaints of picc m line clogged. 09:34 Is a 66-year-old male with history diabetes mellitus hypertension the presents emerged [facility] department with complaints of malfunctioning PICC line. Home health was unable to flush. Patient denies any chest pain, shortness of breath, fever, etc.. Historical: - Allergies: 09:31 No Known Allergies; iw - PMHx: 09:31 diabetes mellitus; Hypertensive disorder; iw ROS: 09:34 Constitutional: Negative for fever, chills, and weight loss, Cardiovascular: Negative [facility] for chest pain, palpitations, and edema, Respiratory: Negative for shortness of breath, cough, wheezing, and pleuritic chest pain. 09:34 All other systems are negative. Exam: 09:34 Constitutional: This is a well developed, well nourished patient who is awake, alert, [facility] and in no acute distress. Head/Face: atraumatic. Eyes: EOMI, no conjunctival erythema appreciated ENT: Moist Mucus Membranes Neck: Trachea midline, Supple Chest/axilla: Normal chest wall appearance and motion. Cardiovascular: Regular rate and rhythm. No edema appreciated Respiratory: Normal respirations, no respiratory distress appreciated Abdomen/GI: Non distended Back: Normal ROM Skin: General appearance color normal MS/ Extremity: Moves all extremities, no obvious deformities appreciated, no edema noted to the lower extremities Neuro: Awake and alert Psych: Behavior is normal, Mood is normal, Patient is cooperative and pleasant Vital Signs: 09:28 BP 155 / 77; Pulse 105; Resp 16; Temp 98.0; Pulse Ox 100% on R/A; iw 09:57 BP 152 / 76; Pulse 99; Resp 16; Pulse Ox 98% on R/A; vg1 MDM: 09:34 Patient medically screened. [facility] 09:48 Data reviewed: vital signs, nurses notes. [facility] 15:58 Counseling: I had a detailed discussion with the patient and/or guardian regarding: the jmm historical points, exam findings, and any diagnostic results supporting the discharge/admit diagnosis, the need for outpatient follow up, to return to the emergency department if symptoms worsen or persist or if there are any questions or concerns that arise at home. ED course: RN was able to flush both picklines without using Cathflo. Advised to follow-up with PCP and otherwise given strict return precautions. Patient understood and agrees plan of care.. Administered Medications: 09:45 Not Given (Physician Discretion): Cathflo Activase 2 mg IV Thrombolytics once; into vg1 each catheter lumen, may repeat once Disposition: 10:17 Co-signature as Attending Physician, Wyatt Keller MD I reviewed the patient's care rn provided by the Advanced Practice Provider and agree with the diagnosis and treatment plan. Disposition Summary: 03/20/22 09:49 Discharge Ordered Location: Home [facility] Condition: Stable jm Diagnosis - Person with feared health complaint in whom no diagnosis is made jm Followup: jmm - With: Private Physician - When: 2 - 3 days - Reason: Recheck today's complaints, Continuance of care, Re-evaluation by your physician Discharge Instructions: - Discharge Summary Sheet jmm - PICC Home Care Guide jmm - PICC Insertion, Care After jmm Forms: - Medication Reconciliation Form [facility] - Thank You Letter jm - Antibiotic Education jmm - Prescription Opioid Use [facility] Signatures: Julian Butcher PA PA jmm Williams, Irene, RN RN iw Nieto, Roman, MD MD rn Garcia, Victoria RN vg1
--- NOTE | 2022-03-20 09:49 | ER ---
Nurse's Notes [facility] Name: Kelby Paris Jr Age: 66 yrs Sex: Male : 1955 Arrival Date: 03/20/2022 Time: 09:18 Bed 20 Private MD: Wilmer Verma Diagnosis: Person with feared health complaint in whom no diagnosis is made Presentation: 03/20 09:28 Chief complaint: Patient states: PICC line is clogged , had PICC line placed about 3 iw weeks ago for IV abx for foot infection, home health nurse said both ports were clotted off this morning. Coronavirus screen: At this time, the client does not indicate any symptoms associated with coronavirus-19. Ebola Screen: Patient negative for fever greater than or equal to 101.5 degrees Fahrenheit, and additional compatible Ebola Virus Disease symptoms Patient denies exposure to infectious person. Patient denies travel to an Ebola-affected area in the 21 days before illness onset. No symptoms or risks identified at this time. Initial Sepsis Screen: Does the patient meet any 2 criteria? No. Patient's initial sepsis screen is negative. Does the patient have a suspected source of infection? No. Patient's initial sepsis screen is negative. Risk Assessment: Do you want to hurt yourself or someone else? Patient reports no desire to harm self or others. Onset of symptoms was March 20, 2022. 09:28 Method Of Arrival: Wheelchair iw 09:28 Acuity: JULIA 3 iw Historical: - Allergies: 09:31 No Known Allergies; iw - PMHx: 09:31 diabetes mellitus; Hypertensive disorder; iw Screenin:49 [facility] ED Fall Risk Assessment (Adult) History of falling in the last 3 months, vg1 including since admission No falls in past 3 months (0 pts) Confusion or Disorientation No (0 pts) Intoxicated or Sedated No (0 pts) Impaired Gait No (0 pts) Mobility Assist Device Used Yes (1 pt) Altered Elimination No (0 pt) Score/Fall Risk Level 0 - 2 = Low Risk Oriented to surroundings, Maintained a safe environment, Educated pt \T\ family on fall prevention, incl call for assistance when getting out of bed, Assessed \T\ reinforced patient's understanding of fall precautions. Abuse screen: Denies threats or abuse. Denies injuries from another. Nutritional screening: No deficits noted. Tuberculosis screening: No symptoms or risk factors identified. Assessment: 09:45 Reassessment: flushed each lumen with 20 mL; was able to flush with arm positioned vg1 distal from body; was able to get blood return as well; provider notified. 09:46 General: Appears in no apparent distress. comfortable, Behavior is calm, cooperative. vg1 Pain: Denies pain. Neuro: Level of Consciousness is awake, alert, obeys commands, Oriented to person, place, time, situation. Cardiovascular: Patient's skin is warm and dry. Respiratory: Airway is patent Respiratory effort is even, unlabored. Derm: Skin is pink, warm \T\ dry. Vital Signs: 09:28 BP 155 / 77; Pulse 105; Resp 16; Temp 98.0; Pulse Ox 100% on R/A; iw 09:57 BP 152 / 76; Pulse 99; Resp 16; Pulse Ox 98% on R/A; vg1 ED Course: 09:18 Patient arrived in ED. as 09:18 Wilmer Verma DO is Private Physician. as 09:20 Julian Butcher PA is PHCP. jmm 09:20 Wyatt Keller MD is Attending Physician. jmm 09:30 Triage completed. iw 09:31 Arm band placed on. iw 09:45 Accessed PICC line. Clean \T\ dry. Dressing intact. Good blood return. Flushes easily. vg1 line appears to be positional . 09:49 Patient has correct armband on for positive identification. Bed in low position. Call vg1 light in reach. Side rails up X 1. 09:49 No provider procedures requiring assistance completed. vg1 09:57 Tamia Zaidi, RN is Primary Nurse. vg1 09:58 Patient did not have IV access during this emergency room visit. vg1 Administered Medications: 09:45 Not Given (Physician Discretion): Cathflo Activase 2 mg IV Thrombolytics once; into vg1 each catheter lumen, may repeat once Medication: 09:49 VIS not applicable for this client. vg1 Outcome: 09:49 Discharge ordered by . jmm 09:57 Discharged to home via wheelchair. vg1 09:57 Condition: good 09:57 Discharge instructions given to patient, Instructed on discharge instructions, follow up and referral plans. Demonstrated understanding of instructions, follow-up care. 09:58 Patient left the ED. vg1 Signatures: Julian Butcher PA PA jmm Martinez, Amelia as Williams, Irene, RN RN iw Garcia, Victoria, RN RN vg1 Corrections: (The following items were deleted from the chart) :31 09:28 Acuity: JULIA 4 michael rodriguez
[2022-03-20 10:03] VITALS: TEMP 98
[2022-03-20 10:04] VITALS: BP 152/76; O2SAT 98
== END 2022-03-20 09:58 | disposition home or self-care (01) ==
LOC: ER 09:15
DX: Z71.1 Person with feared health complaint in whom no diagnosis is made (principal)
CPT/HCPCS: 99284

== ENCOUNTER 2022-04-06 08:16 | Emergency (ER) | payer BC ==
--- OUTSIDE RECORDS SUMMARY | 2022-04-06 08:21 | XMS REPORT | Continuity of Care Document ---
:1955 Author Organization [facility] t Address [address] [place] [address] Care Team Providers Name Role Phone Saniya Jackson A Primary Care Physician Unavailable Gloria ARIAS Attending Clinician Unavailable Luciano Allen Attending Clinician Unavailable Rosita Sullivan Attending Clinician Unavailable Darius Cardenas Attending Clinician Masoud ALDRICH, Jo Al Attending Clinician Unavailable DIVINE RANDOLPH Attending Clinician Unavailable Only, Ang Db Test Attending Clinician Unavailable Divine Randolph MD Attending Clinician Payers Payer Name Policy Type Policy Number Effective Date Expiration Date S ciarra [employer] 6 [id number] 2018 Common Spiri t Blue Shield 00:00:00 - [facility] Problems Condition Condition Condition Status Onset Resolution Last Treating Co mments Source Name Details Category Date Date Treatment Clinician Date 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 mellitus [facility] complicati Medica l on, Center without long-term current use of insulin [id number] Dietary Problem Commo n surveillan Spirit ce and - [facility] counseling [facility] [id number] Hyperlipid Problem Com mon emia, Spirit unspecifie - [facility]I d hyperlipid [facility] emia [facility] [id number] Overweight Problem Co mmon (BMI [facility] 25.0-29.9) [facility] [id number] Open wound Problem Co mmon [facility] Allergies, Adverse Reactions, Alerts Allergy Allergy Status Severity Reaction(s) Onset Inactive Treating Comm ents Source Name Type Date Date Clinician NO KNOWN Drug Active [facility] Social History Social Habit Start Date Stop Date Quantity Comments Source Exposure to SARS-CoV-2 Yes Un [facility] (event) [facility] History of Tobacco Use Co on [facility] Sex Assigned At Com [facility] Smoking Status Start Date Stop Date Source Tobacco smoking [facility] consumption unknown Medical Bran ch Former Smoker 2022-02-26 00:00:00 2022-02-26 Common Spiri t [facility] 00[facility]00 [facility] nter Medications Ordered Filled Start Stop Current Ordering Indication Dosage Frequency Signature Comments Components Source Medication Medication Date Date Medication? Clinician (SIG) Name Name Metformin Metformin Yes Rosita 1 tablet Common HCl HCl 7-02 Millender with a Spirit 00:00: meal - [facility] Amlodipine Amlodipine Yes Rosita 1 tablet Common Besylate Besylate Millender Sp barbara [facility] Metoprolol Metoprolol Yes Rosita 1 tablet Common Tartrate Tartrate Millender with food Spirit [facility] glipiZIDE glipiZIDE No 1{table BID glipiZIDE [...] MG Lisinopril Lisinopril Yes Rosita 1 tablet [facility] Aspir-Low Aspir-Low Yes Rosita 1 tablet [facility] GlipiZIDE GlipiZIDE Yes Rosita 1 tablet [facility] Vital Signs Vital Name Observation Time Observation Value Comments Source height 2021-11-18 09:20:00 74.00 [in_i] [facility] enter weight 2021-11-18 09:20:00 214 [lb_av] [facility] enter bmi 2021-11-18 09:20:00 27.47 kg/m2 [facility] enter height 2021-03-11 09:20:00 74.00 [in_i] [facility] enter weight 2021-03-11 09:20:00 208.9 [lb_av] [facility] enter bmi 2021-03-11 09:20:00 26.82 kg/m2 [facility] enter Procedures This patient has no known procedures. Encounters Start End Encounter Admission Attending Care Care Encounter Source Date/Time Date/Time Type Type Clinicians Facility Department ID 2022-03-11 Outpatient ARIAS, Na STLMLC STLMLC [id number] 2 Common 10:14:00 [facility] 2022-03-05 Outpatient ARIAS, Na STLMLC STLMLC [id number] 2 Common 09:43:00 [facility] 2022-02-25 Outpatient ARIAS, Na STLMLC STLMLC [id number] 2 Common 11:47:00 [facility] 2021-11-16 Outpatient Arias, Na STLMLC STLMLC [id number] 2 Common 14:11:01 [facility] 2021-07-15 Outpatient Arias, Na STLMLC STLMLC [id number] 2 Common 09:29:00 [facility] 2021-04-13 Outpatient Arias, Na STLMLC STLMLC [id number] 2 Common 13:28:00 [facility] 2021-03-11 Outpatient Arias, Na STLMLC STLMLC [id number] 2 Common 14:39:02 [facility] 2021-03-11 Outpatient Arias, Na STLMLC STLMLC [id number] 2 Common 14:12:56 [facility] 2021-03-11 Outpatient Arias, Na STLMLC STLMLC [id number] 2 Common 12:50:[id number] [facility] 2021-03-11 Outpatient Arias, Na STLMLC STLMLC [id number] 2 Common 12:41:[id number] [facility] 2021-03-11 Outpatient Arias, Na STLMLC STLMLC [id number] 2 Common 12:21:[id number] [facility] 2021-03-11 Outpatient STLMLC STLMLC [id number] Common 12:18:[id number] [facility] 2021-03-11 Outpatient Allen, Kin STLMLC STLMLC [id number] 02 Common 12:08:[id number] [facility] 2021-03-11 Outpatient Millender, STLMLC STLMLC [id number] Common 11:36:[id number] [facility] 2021-03-11 Outpatient Millender, STLMLC STLMLC [id number] Common 11:36:[id number] [facility] 2022-03-23 2022-03-23 (TEL) STLMLC STLMLC [id number] Co mmon 00:00:00 00:00:00 [facility] 2022-03-15 2022-03-15 Telephone Justin [facility] [id number] [facility] 00:00:00 00:00:00 [facility] [id number] it y [facility] [id number] Dustin as CHRISTIAN?BLEA [phone] [address] MEDICAL OFFICE BUILDING 2022-03-10 2022-03-10 (TEL) STLMLC STLMLC [id number] Co mmon 00:00:00 00:00:00 [facility] 2022-03-02 2022-03-02 (TEL) STLMLC STLMLC [id number] Co mmon 00:00:00 00:00:00 [facility] 2022-02-24 2022-02-24 (TEL) STLMLC STLMLC [id number] Co mmon 00:00:00 00:00:00 [facility] 2021-11-18 2021-11-18 OL DIG E/M STLMLC STLMLC [id number] Common 00:00:00 00:00:00 [facility] 01-03 Spir it [facility] 2021-07-15 2021-07-15 OL DIG E/M STLMLC STLMLC [id number] Common 00:00:00 00:00:00 [facility] 01-03 Spir it MIN [facility] 2021-03-11 2021-03-11 OL DIG E/M STLMLC STLMLC [id number] Common 00:00:00 00:00:00 [facility] 11-20 Spir it [facility] 2021-02-19 2021-02-19 (TEL) STLMLC STLMLC [id number] Co mmon 00:00:00 00:00:00 [facility] 2021-01-06 2021-01-06 (TEL) STLMLC STLMLC [id number] Co mmon 00:00:00 00:00:00 [facility] 2021-01-04 2021-01-04 (TEL) STLMLC STLMLC [id number] Co mmon 00:00:00 00:00:00 [facility] 2020-10-21 2020-10-21 Letter MIR Meredith [id number] Univers 00:00:00 00:00:00 (Out) Jo BIANCHI [id number] it y [facility] [id number] Dustin as [phone] [address] 2020-10-19 2020-10-19 [facility] [id number] Univers 17:00:00 [facility]00[facility] 2020-10[facility]19 2020-10-19 Laboratory Only, Ang Db Test [facility] [id number] Univers 16:28:44 16:43:44 Only Gonzalez [id number] [id number] Dustin as Christian?Blea [phone] [address] Medical Office Building 2020-06-19 2020-06-19 Outpatient STLMLC STLMLC [id number] Common 00:00:00 00:00:00 [facility] 2020-05-01 2020-05-01 Outpatient STLMLC STLMLC [id number] Common 00:00:00 00:00:00 [facility] 2020-03-05 2020-03-05 Outpatient STLMLC STLMLC [id number] Common 00:00:00 00:00:00 [facility] 2020-02-29 2020-02-29 Outpatient STLMLC STLMLC [id number] Common 00:00:00 00:00:00 [facility] 2019-09-26 2019-09-26 [id number] Common 11:00:00 11:00:[address] [facility] 2019-08-21 2019-08-21 [facility] [id number] Common 13:51:00 13:51:[address] [facility] 2019-08-20 2019-08-20 [facility] [id number] Common 10:17:00 10:17:[address] [facility] 2019-08-20 2019-08-20 [facility] [id number] Common 10:00:00 10:00:[address] [facility] 2018-10-04 2018-10-04 [facility] [id number] Common 10:15:00 10:15:00 [facility] 2018-01-25 2018-01-25 [facility] [id number] Common 11:15:00 11:15:[address] [facility] 2017-08-24 2017-08-24 [facility] [id number] Common 13:30:00 13:30:[address] [facility] Results This patient has no known results.
--- NOTE | 2022-04-06 08:50 | EDPHYS ---
Physician Documentation [facility] Name: Kelby Paris Jr Age: 66 yrs Sex: Male : 1955 Arrival Date: 04/06/2022 Time: 08:20 Bed 19 Private MD: ED Physician Wyatt Keller HPI: 04/06 08:29 This 66 yrs old Male presents to ER via Unassigned with complaints of Picc rn Line Removal. 08:29 Pt reports has completed PICC line treatment duration, no complications, and is here rn for PICC line removal, told to come here for removal. No arm pain/swelling/color change. NO fever. NO sob. No chest pain.. The patient has not recently seen a physician. Historical: - Allergies: 08:22 No Known Allergies; aa5 - PMHx: 08:22 diabetes mellitus; Hypertensive disorder; aa5 - Immunization history:: Client reports receiving the 2nd dose of the Covid vaccine. - Family history:: not pertinent. - Social history:: Smoking status: Patient denies any tobacco usage or history of. - Hospitalizations: : No recent hospitalization is reported. ROS: 08:29 Constitutional: Negative for fever, chills, and weight loss, Cardiovascular: Negative rn for chest pain, palpitations, and edema, Respiratory: Negative for shortness of breath, cough, wheezing, and pleuritic chest pain, MS/Extremity: Negative for injury and deformity, Skin: Negative for injury, rash, and discoloration, Neuro: Negative for headache, weakness, numbness, tingling, and seizure. Exam: 08:29 Constitutional: This is a well developed, well nourished patient who is awake, alert, rn and in no acute distress. Cardiovascular: Regular rate and rhythm. No pulse deficits. Respiratory: No increased work of breathing, no retractions or nasal flaring. Skin: Warm, dry with normal turgor. Normal color with no rashes, no lesions, and no evidence of cellulitis. MS/ Extremity: Pulses equal, no cyanosis. Neurovascular intact. Full, normal range of motion. Equal circumference. Neuro: Awake and alert, GCS 15 Vital Signs: 08:21 BP 144 / 68; Pulse 85; Resp 16 S; Temp 98.2(O); Pulse Ox 100% on R/A; aa5 08:49 BP 131 / 77; Pulse 87; Pulse Ox 99% on R/A; ap3 MDM: 08:20 Patient medically screened. rn 08:29 Differential Diagnosis PICC line removal. Data reviewed: vital signs, nurses notes, and rn as a result, I will discharge patient. Counseling: I had a detailed discussion with the patient and/or guardian regarding: the historical points, exam findings, and any diagnostic results supporting the discharge/admit diagnosis, the need for outpatient follow up, to return to the emergency department if symptoms worsen or persist or if there are any questions or concerns that arise at home. Special discussion: I discussed with the patient/guardian in detail that at this point there is no indication for admission to the hospital. It is understood, however, that if the symptoms persist or worsen the patient needs to return immediately for re-evaluation. 04/06 08:28 Order name: Misc. Order: Please remove PICC line and apply pressure; Complete Time: rn 08:43 Administered Medications: No medications were administered Disposition Summary: 04/06/22 08:50 Discharge Ordered Location: Home rn Problem: new rn Symptoms: have improved rn Condition: Stable rn Diagnosis - Encounter for PICC line removal rn Followup: rn - With: Private Physician - When: As needed - Reason: Recheck today's complaints, Re-evaluation by your physician Discharge Instructions: - Discharge Summary Sheet rn - PICC Removal, Adult, Care After rn Forms: - Medication Reconciliation Form rn - Thank You Letter rn - Antibiotic varnish maker helper - Prescription Opioid Use rn Signatures: Wyatt Keller MD MD rn Calderon, Audri, RN RN aa5 Eda Escalera RN RN ap3
--- NOTE | 2022-04-06 08:50 | ER ---
Nurse's Notes [facility] Name: Kelby Paris Jr Age: 66 yrs Sex: Male : 1955 Arrival Date: 04/06/2022 Time: 08:20 Bed 19 Private MD: Diagnosis: Encounter for PICC line removal Presentation: 04/06 08:21 Chief complaint: Patient states: completed IV antibiotic treatment yesterday, pt states aa5 "I just need you to removed the PICC line". 08:21 Onset of symptoms was March 2022. aa5 08:21 Acuity: JULIA 4 aa5 08:21 Method Of Arrival: Ambulatory aa5 08:21 Coronavirus screen: At this time, the client does not indicate any symptoms associated aa5 with coronavirus-19. Ebola Screen: Patient denies travel to an Ebola-affected area in the 21 days before illness onset. Initial Sepsis Screen: Does the patient meet any 2 criteria? No. Patient's initial sepsis screen is negative. Does the patient have a suspected source of infection? No. Patient's initial sepsis screen is negative. Risk Assessment: Do you want to hurt yourself or someone else? Patient reports no desire to harm self or others. Historical: - Allergies: 08:22 No Known Allergies; aa5 - PMHx: 08:22 diabetes mellitus; Hypertensive disorder; aa5 - Immunization history:: Client reports receiving the 2nd dose of the Covid vaccine. - Family history:: not pertinent. - Social history:: Smoking status: Patient denies any tobacco usage or history of. - Hospitalizations: : No recent hospitalization is reported. Screenin:46 [facility] ED Fall Risk Assessment (Adult) History of falling in the last 3 months, ap3 including since admission No falls in past 3 months (0 pts). Abuse screen: Denies threats or abuse. Nutritional screening: No deficits noted. Tuberculosis screening: No symptoms or risk factors identified. Assessment: 08:44 General: Appears in no apparent distress. Behavior is calm, cooperative, appropriate ap3 for age. Pain: Denies pain. Neuro: Level of Consciousness is awake, alert, obeys commands, Oriented to person, place, time, situation, Gait is steady, Speech is normal. Cardiovascular: Patient's skin is warm and dry. Respiratory: Airway is patent. Vital Signs: 08: BP 144 / 68; Pulse 85; Resp 16 S; Temp 98.2(O); Pulse Ox 100% on R/A; aa5 08:49 BP 131 / 77; Pulse 87; Pulse Ox 99% on R/A; ap3 ED Course: 08:20 Patient arrived in ED. mr 08:20 Wyatt Keller MD is Attending Physician. rn 08:21 Arm band placed on Patient placed in an exam room, on a stretcher. aa5 08:30 Triage completed. aa5 08:30 Eda Escalera, RN is Primary Nurse. ap3 08:45 IV discontinued, intact, bleeding controlled, No redness/swelling at site. Pressure ap3 dressing applied, nurse removed existing picc line that was in place when patient arrived. PICC was in patients left upper arm. 08:46 Patient has correct armband on for positive identification. Bed in low position. Call ap3 light in reach. Side rails up X 1. Pulse ox on. NIBP on. Door closed. Noise minimized. 08:46 No provider procedures requiring assistance completed. ap3 Administered Medications: No medications were administered Medication: 08:47 VIS not applicable for this client. ap3 Outcome: 08:50 Discharge ordered by . rn 09:00 Discharged to home via wheelchair, with family. ap3 09:00 Condition: good 09:00 Discharge instructions given to patient, Instructed on discharge instructions, follow up and referral plans. wound care, Demonstrated understanding of instructions, follow-up care, wound care. 09:00 Patient left the ED. ap3 Signatures: Crow Mayra mr Wyatt Keller MD MD rn Calderon, Audri, RN RN [facility] Eda Escalera RN RN ap3
[2022-04-06 09:06] VITALS: TEMP 98.2
[2022-04-06 09:07] VITALS: BP 131/77; O2SAT 99
== END 2022-04-06 09:00 | disposition home or self-care (01) ==
LOC: ER 08:16
DX: Z45.2 Encounter for adjustment and management of vascular access device (principal)
CPT/HCPCS: 99283